=== PATIENT | female | born 1930 | race Caucasian/White ===

== ENCOUNTER 2018-02-01 10:19 | Inpatient (IN) ==
[2018-02-01] MEDS ORDERED: Pantoprazole Inj 40 MG Vial IV.PUSH ONE (11:01)
[2018-02-01] MEDS ORDERED: Morphine Inj 4 MG/ML Vial IV.PUSH ONE (11:01)
[2018-02-01] MEDS ORDERED: Sod Chloride 0.9% Inj 1,000 ML IV.SIG ONE (11:01)
--- NOTE | 2018-02-01 11:06 | ED ---
HPI General Chief complaint: Nausea/Vomiting/Diarrhea Stated complaint: GI Complaint Time Seen by Provider: 02/01/18 10:54 Source: patient and family Mode of arrival: ambulatory Limitations: no limitations History of Present Illness HPI Narrative: 87-year female presents to the emergency department for evaluation of persistent nausea, vomiting and abdominal pain. Patient presented with similar symptoms. Her daughter states that Thursday her nausea and vomiting became worse and was unable to tolerate her medications which included Flagyl, Cipro, and Zofran. Patient states her midepigastric and left lower quadrant have been tender and painful. Patient states it is constant and nonradiating. Her daughter states that the vomitus was "bile colored" Thursday and has been persistently green since then. Daughter states patient has felt warm and cool throughout the weekend but denies actual fever. Denies chest pain or shortness of breath. Daughter reports that whenever patient gets hiccups, she becomes nauseous but this is intermittent. Patient does not recall her last bowel movement. No cardiac or pulmonary history. Related Data Home Medications Medication Instructions Recorded Confirmed amiloride-hydrochlorothiazide 1 tab PO DAILY 01/28/18 01/28/18 amlodipine 10 mg PO DAILY 01/28/18 01/28/18 aspirin 81 mg PO DAILY 01/28/18 01/28/18 benazepril 40 mg PO DAILY 01/28/18 01/28/18 gabapentin 100 mg PO DAILY 01/28/18 01/28/18 ipratropium bromide 2 spray INTRANASAL TID 01/28/18 01/28/18 meclizine 25 mg PO TID PRN 01/28/18 01/28/18 metoprolol succinate 100 mg PO DAILY 01/28/18 01/28/18 oxybutynin chloride 10 mg PO DAILY 01/28/18 01/28/18 pravastatin 80 mg PO DAILY 01/28/18 01/28/18 primidone 50 mg PO DAILY 01/28/18 01/28/18 Previous Rx's Medication Instructions Recorded ciprofloxacin HCl [Cipro] 500 mg PO BID #14 tab 01/28/18 metronidazole [Flagyl] 500 mg PO Q8H 7 Days #21 tab 01/28/18 Allergies Allergy/AdvReac Type Severity Reaction Status Date / Time atorvastatin Allergy Severe SWELLING Unverified 01/28/18 16:38 codeine Allergy Severe NAUSEA Unverified 01/28/18 16:38 loratadine Allergy Severe SWELLING Unverified 01/28/18 16:38 meperidine Allergy Severe NAUSEA Unverified 01/28/18 16:38 iohexol Allergy Unknown PT.ALLERGIC Unverified 01/28/18 16:38 TO PREDNISON/DO NOT PREMED!! Review of Systems ROS: all other systems reviewed are negative [facility] Medical History Medical History Bone cancer (Acute) Skin cancer (Acute) Essential tremor (Acute) Hyperlipidemia (Acute) Hypertension (Acute) Surgical History Surgical History History of hysterectomy (Acute) Hx of cholecystectomy (Acute) Family History Family History Other Family history not known due to adoption Social History Social History Substance History: No History of Abuse Second Hand Smoke Exposure: No Smoking Status: Never smoker How Often Do You Have a Drink Containing Alcohol: Never Recent Travel in [facility] within the Last 8 Weeks: No Recent Out of Country Travel within the Last 8 Weeks: No Immunization History Tetanus Immunization: <5 Years Exam Narrative Exam Narrative: GENERAL: WD, WN in NAD, tremulous SKIN: Warm and dry. HEAD: Atraumatic. Normocephalic. EYES: Pupils equal and round. No scleral icterus. No injection or drainage. ENT: No nasal bleeding or discharge. Mucous membranes pink and moist. NECK: Trachea midline. No JVD. CARDIOVASCULAR: Regular rate and rhythm. RESPIRATORY: No accessory muscle use. Clear to auscultation. Breath sounds equal bilaterally. GASTROINTESTINAL: Abdomen soft, TTP to midepigastric and LLQ without rebound tenderness. No CVAT MUSCULOSKELETAL: Extremities without clubbing, cyanosis, or edema. No obvious deformities. No TTP to calves NEUROLOGICAL: Awake and alert. No obvious cranial nerve deficits. Motor grossly within normal limits. Five out of 5 muscle strength in the arms and legs. Normal speech. PSYCHIATRIC: Appropriate mood and affect; insight and judgment normal. Course Initial Documented Vital Signs Temperature 98.2 F 02/01/18 10:22 Pulse Rate 94 H 02/01/18 10:22 Respiratory Rate 20 02/01/18 10:22 Blood Pressure 201/82 H 02/01/18 10:22 Pulse Oximetry 96 02/01/18 10:22 Last Documented Vital Signs Temperature 98.4 F 02/01/18 10:25 Pulse Rate 94 H 02/01/18 13:19 Respiratory Rate 18 02/01/18 13:19 Blood Pressure 175/79 H 02/01/18 13:19 Pulse Oximetry 94 L 02/01/18 13:19 Medical Decision Making RENU Attestation RENU supervised visit: Yes Attestation: I, Dr. akins, have reviewed the advance practice practitioner's documentation and am in agreement, met with the patient face to face, made the diagnosis, and the medical decision making was done by me. *My assessment and Findings: 87 y/o female presents with abdominal pain and nausea. CT shows partial bowel obstruction and EKG shows A. fib. Patient will be admitted for further care of the above and agrees to plan of care, patient with critical hypokalemia which will be replaced MDM Narrative Medical decision making narrative: 87y female presents to the ED for evaluation of worsening abdominal pain, nausea, and vomiting over the last couple of days. She has been unable to tolerate the medications given to her despite zofran administration. EKG shows atrial fibrillation at rate 112, no ST elevations or depressions. I had a discussion with the daughter who states that patient has never had a history of an irregular heartbeat. This EKG finding may be new for her. Labs are notable for potassium 2.7, ordered 40meq IV KCl. WBC 14.8. Sodium 127. troponin elevated at 0.15, likely type 2. Consider trending. Vital signs: hypertensive and tachycardic, cardizem 20mg IV. Protonix for midepigastric pain. Morphine for abdominal pain. 1L NS IVF for hydration. CT concerning for SBO. Pt will be made NPO. NG tube ordered for placement. CXR which helped confirm placement. I spoke to Dr. Hull who agreed to the admission. Medical Screen Exam Complete: Yes Emergency Medical Condition: Yes Differential Diagnosis Differential Diagnosis: colitis, failed outpatient antibiotics, diverticulitis, SBO Lab Data Result diagrams: 02/01/18 11:16 02/01/18 11:16 Lab Results 02/01/18 02/01/18 Range/Units 11:16 11:16 WBC 14.8 H (4.0-11.0) th/mm3 RBC 4.97 (4.00-5.30) mil/mm3 Hgb 15.2 (11.6-15.3) gm/dL Hct 43.3 (35.0-46.0) % MCV 87.0 (80.0-100.0) fL MCH 30.6 (27.0-34.0) pg MCHC 35.2 (32.0-36.0) % RDW 13.7 (11.6-17.2) % Plt Count 240 (150-450) th/mm3 MPV 10.5 (7.0-11.0) fL Neut % (Auto) 72.2 H (16.0-70.0) % Lymph % (Auto) 15.2 (9.0-44.0) % [facility] % (Auto) 11.9 H (0.0-8.0) % Eos % (Auto) 0.4 (0.0-4.0) % Baso % (Auto) 0.3 (0.0-2.0) % Neut # (Auto) 10.7 H (1.8-7.7) th/mm3 Lymph # (Auto) 2.3 (1.0-4.8) th/mm3 [facility] # (Auto) 1.8 H (0.0-0.9) th/mm3 Eos # (Auto) 0.1 (0.0-0.4) th/mm3 Baso # (Auto) 0.0 (0.0-0.2) th/mm3 WBC Differential . Differential Comment Auto diff final Sodium 127 L (136-145) meq/L Potassium 2.7 L* (3.5-5.1) meq/L Chloride 88 L (98-107) meq/L Carbon Dioxide 27.1 (21.0-32.0) meq/L Anion Gap 12 (5-15) meq/L BUN 23 H (7-18) mg/dL Creatinine 0.98 (0.50-1.00) mg/dL Estimated GFR 54 L (>89) mL/min Random Glucose 125 H (74-106) mg/dL Calcium 10.2 H (8.5-10.1) mg/dL Magnesium 1.8 (1.5-2.5) mg/dL Total Bilirubin 0.9 (0.2-1.0) mg/dL AST 31 (15-37) U/L ALT 23 (10-53) U/L Alkaline Phosphatase 57 (45-117) U/L Troponin I 0.15 H (0.02-0.05) ng/mL Total Protein 8.1 (6.4-8.2) g/dL Albumin 3.9 (3.4-5.0) g/dL Lipase 166 (73-393) U/L TSH 2.140 (0.358-3.740) uIU/mL Imaging Data Radiologist's impression: Abdomen/Pelvis CT 02/01/18 11:06 CONCLUSION: 1. Moderate distention of the mid and proximal small bowel with air-fluid levels which is increased compared to the prior study. The distal small bowel is nondilated. This suggests a mid to distal partial small bowel obstruction. 2. The bladder remains somewhat distended. 3. Otherwise, no other significant changes are seen compared to the prior study. Chest X-Ray 02/01/18 11:09 CONCLUSION: 1. Senescent changes with minimal positive fluid balance. Abdomen X-Ray 02/01/18 13:05 CONCLUSION: There is an NG tube in the stomach. Discharge Plan Discharge Disposition Patient Disposition: 30 Still Patient Discharge Condition Condition: Stable Discharge Details Diagnosis: Dehydration, Partial small bowel obstruction, Acute hypokalemia, Elevated troponin Physicians Team ED Provider: Claudine Akins ED Midlevel Provider: Mallorie Echols Attending Provider: Lynsey Hull Other Providers: Kemar Arriola ; Tyson Francis Status ED Status: Admitted Observation Patient
--- NOTE | 2018-02-01 11:43 | CT ---
EXAM DATE: 02/01/2018 11:09 AM EDT AGE/SEX: 87 years / Female INDICATIONS: Left lower quadrant abdomen pain severe nausea CLINICAL DATA: This is the patient's initial encounter. Patient reports that signs and symptoms have been present for 1 day and indicates a pain score of 5/10. MEDICAL/SURGICAL HISTORY: Carcinoma, lung. Hypertension. adenocarcinoma Cholecystectomy. Hy sterectomy. RADIATION DOSE: 6.64 CTDI (mGy) COMPARISON: [facility] – [place], CT ABDOMEN & PELVIS W/O CONTRAST, 01/28/2018. . TECHNIQUE: Multiple contiguous axial images were obtained through the abdomen. Images were obtained using multiple row detector helical technique. Using automated exposure control and adjustment of the mA and/or kV according to patient size, radiation dose was kept as low as reasonably achievable to o btain optimal diagnostic quality images. DICOM format image data is available electronically for rev iew and comparison. FINDINGS: Lower Lungs: The visualized lower lungs are clear. Small pericardial effusion. Liver: The liver has a homogeneous density without space-occupying lesion. There is no dilation of th e biliary tree. Gallbladder surgically removed. Spleen: Homogeneous density without enlargement. Pancreas: Unremarkable without mass or calcification. Kidneys: Normal in size and shape. No evidence of mass or hydronephrosis. No calcified renal stones. Adrenal Glands: Unremarkable. Aorta: Stable atherosclerotic changes. No aneurysmal dilatation. Bowel/Mesentery: Today's examination there is moderate distention of the proximal mid small bowel wi th air-fluid levels. The distal small bowel is completely nondilated. This suggests a mid to distal s mall bowel obstruction. The colon is nondilated. There is stool throughout the colon. There are some scattered diverticula throughout the colon without definite inflammatory changes. No free fluid or lo culated fluid collections are demonstrated. Abdominal Wall: Intact. Retroperitoneum: No evidence of adenopathy in the retrocrural, para-aortic, or deep pelvic regions. Bladder: Contours are smooth. Bladder is still somewhat distended. Reproductive Organs: No abnormal masses or calcifications seen. Inguinal: The inguinal region is unremarkable without evidence of adenopathy. Bony Structures: Stable diffuse degenerative changes. Evidence of previous lumbar spinal surgery wit h fusion involving the lower lumbar spine. CONCLUSION: 1. Moderate distention of the mid and proximal small bowel with air-fluid levels which is increased compared to the prior study. The distal small bowel is nondilated. This suggests a mid to distal part ial small bowel obstruction. 2. The bladder remains somewhat distended. 3. Otherwise, no other significant changes are seen compared to the prior study. Electronically signed by: Gamaliel Haynes MD 02/01/2018 11:42 AM EDT
[2018-02-01 11:58] LABS: Baso % (Auto) 0.3 % (0.0-2.0); Eos # (Auto) 0.1 th/mm3 (0.0-0.4); Eos % (Auto) 0.4 % (0.0-4.0); Hematocrit 43.3 % (35.0-46.0); Hemoglobin 15.2 gm/dL (11.6-15.3); Lymph # (Auto) 2.3 th/mm3 (1.0-4.8); Lymph % (Auto) 15.2 % (9.0-44.0); Mean Corpuscular HGB Conc 35.2 % (32.0-36.0); Mean Corpuscular Hemoglobin 30.6 pg (27.0-34.0); Mean Platelet Volume 10.5 fL (7.0-11.0); Mono # (Auto) 1.8 th/mm3 (0.0-0.9); Mono % (Auto) 11.9 % (0.0-8.0); Neut # (Auto) 10.7 th/mm3 (1.8-7.7); Neut % (Auto) 72.2 % (16.0-70.0); Platelet Count 240 th/mm3 (150-450); Red Blood Count 4.97 mil/mm3 (4.00-5.30); Red Cell Distribution Width 13.7 % (11.6-17.2); White Blood Count 14.8 th/mm3 (4.0-11.0)
--- NOTE | 2018-02-01 12:20 | XR ---
EXAM DATE: 02/01/2018 11:09 AM EDT AGE/SEX: 87 years / Female INDICATIONS: Shortness of breath and vomiting. CLINICAL DATA: This is the patient's initial encounter. Patient reports that signs and symptoms have been present for 3 days and indicates a pain score of 5/10. MEDICAL/SURGICAL HISTORY: Carcinoma, lung. Hypertension. Cholecystectomy. Hysterectomy. COMPARISON: . FINDINGS: Mild diffuse interstitial prominence. Cardiac silhouette is within normal limits. Central pulmonary v ascularity is slightly indistinct. Bony thorax is intact. CONCLUSION: 1. Senescent changes with minimal positive fluid balance. Electronically signed by: Jayden Mclaughlin MD 02/01/2018 12:19 PM EDT
[2018-02-01 12:35] LABS: Alanine Aminotransferase 23 U/L (10-53); Albumin 3.9 g/dL (3.4-5.0); Alkaline Phosphatase 57 U/L (45-117); Anion Gap 12 meq/L (5-15); Aspartate Aminotransferase 31 U/L (15-37); Blood Urea Nitrogen 23 mg/dL (7-18); Calcium 10.2 mg/dL (8.5-10.1); Carbon Dioxide 27.1 meq/L (21.0-32.0); Chloride 88 meq/L (98-107); Glomerular Filtration Rate 54 mL/min (>89); Glucose,Random 125 mg/dL (74-106); Lipase 166 U/L (73-393); Magnesium 1.8 mg/dL (1.5-2.5); Sodium 127 meq/L (136-145); Total Protein 8.1 g/dL (6.4-8.2); Troponin I 0.15 ng/mL (0.02-0.05)
[2018-02-01 12:38] LABS: Potassium 2.7 meq/L (3.5-5.1)
[2018-02-01] MEDS: Potassium Chlor 20 mEq Premix 20 MEQ/100 ML PIGGYBACK IV.SIG SCH ×2 (13:11→18:45)
[2018-02-01] MEDS ORDERED: Acetaminophen 325 MG Tablet PO PRN (13:34)
[2018-02-01] MEDS ORDERED: Bisacodyl 10 MG Supp RECTAL PRN (13:34)
[2018-02-01] MEDS ORDERED: Morphine Inj 4 MG/ML Vial IV.PUSH PRN ×2 (13:34→14:30)
[2018-02-01] MEDS ORDERED: Naloxone Inj 0.4 MG/ML Vial IV.PUSH PRN (13:34)
[2018-02-01] MEDS ORDERED: dilTIAZem Inj 125 MG in Sodium Chlor 0.9% Inj 100 ML IV.CONT PRN (13:44)
--- NOTE | 2018-02-01 13:56 | XR ---
EXAM DATE: 02/01/2018 1:05 PM EDT AGE/SEX: 87 years / Female INDICATIONS: Evaluate ET tube placement. CLINICAL DATA: This is the patient's initial encounter. Patient reports that signs and symptoms have been present for 1 day and indicates a pain score of 0/10. MEDICAL/SURGICAL HISTORY: Carcinoma, lung. Hypertension. Cholecystectomy. Hysterectomy. COMPARISON: No prior exams available for comparison. FINDINGS: An ET tube is not visualized on this examination. However, there is a NG tube in the stomach. The bow el gas pattern is within normal limits. The lung bases are grossly clear. CONCLUSION: There is an NG tube in the stomach. Electronically signed by: Gamaliel Haynes MD 02/01/2018 1:55 PM EDT
--- NOTE | 2018-02-01 14:34 | P.HPIM ---
History of Present Illness Service: [facility] Primary Care Physician: Cathryn Mccauley Chief Complaint: Abdominal pain. Nausea and vomiting History of Present Illness: 87-year-old white female with a history of hyperlipidemia, hypertension, essential tremor, previous bone cancer per reports in the back to the emergency room with worsening abdominal pain with associated intractable nausea and vomiting. She was seen on 28 January in the emergency room for abdominal pain and had a CAT scan abdomen pelvis performed which showed thickening of the sigmoid colon with possible colitis and was sent home on prescription for Cipro and Flagyl. Despite taking the antibiotics, her symptoms is not improved and now developed intractable nausea and some episodes of bilious vomiting which she describes as green in color. She reported when the abdomen pain first started it was located in the mid upper abdomen area and radiated down to the left side. She describes the pain as a dull burning pain that comes and goes. She denies any changes in her bowel movements. She denies any constipation nor any diarrhea. She has not seen any blood in her stools or black tarry stools. She denies any chills or fever associate with the symptoms. She denies any chest pain nor any symptoms of palpitation or shortness of breath. She has not had any heart history in the past. In the emergency room, she was found to have new onset atrial fibrillation and responded to IV Cardizem. She currently lives with her daughter and ambulates with assistance of a cane. Inpatient Certification: I certify that the inpatient services were ordered in accordance with Medicare regulations governing the order. This includes certification that hospital inpatient services are reasonable and necessary and in the case of services not specified as inpatient-only under 42 CFR 419.22(n), that they are appropriately provided as inpatient services in accordance to with the 2-midnight benchmark under 43 CFR 412.3(e) Estimated Total Length of Stay (Days): 3 Plans for Post Hospital Care: Not yet determined Review of Systems All other systems reviewed negative except as stated in HPI [facility] - History History Provided By: Patient - Medical History Medical History: Medical History (Last Updated 02/01/18 @ 14:22 by Lynsey Hull MD) Bone cancer Skin cancer Essential tremor Hyperlipidemia Hypertension - Surgical History Surgical History: Surgical History (Last Updated 02/01/18 @ 14:22 by Lynsey Hull MD) History of hysterectomy (Acute) Hx of cholecystectomy - Family History Family History: Family History (Last Updated 02/01/18 @ 14:22 by Lynsey Hull MD) Other Family history not known due to adoption - Social History I have reviewed the patient's Social History: Yes - Tobacco History Second Hand Smoke Exposure: No Tobacco Use In Past 30 Days: No Smoking Status: Never smoker - Alcohol History How Often Do You Have a Drink Containing Alcohol: Never - Substance Use History Substance History: No History of Abuse - Travel History Recent Travel in the [place] Within the Last 8 Weeks: No Recent Travel Out of the Country Within the Last 8 Weeks: No - Immunization History Tetanus Immunization: <5 Years Medications and Allergies Active Medications: Active Medications Acetaminophen (Tylenol) 650 mg PO Q6HR PRN PRN Reason: PAIN SCALE 1 TO 2 Al Hydroxide/Mg Hydroxide (Milk Of Magnesia Liq) 30 ml PO Q12H PRN PRN Reason: Mild Constipation Bisacodyl (Dulcolax Supp) 10 mg RECTAL DAILY PRN PRN Reason: SEVERE CONSITIPATION Enalaprilat (Vasotec Inj) 1.25 mg IV.PUSH Q6H PRN PRN Reason: SEE LABEL COMMENTS Potassium Chloride (Kcl 20 Meq Premix Inj) 20 meq in 100 mls @ 50 mls/hr IV.SIG Q2H MAGGIE Stop: 02/01/18 16:44 Last Admin: 02/01/18 13:11 Dose: 50 mls/hr Diltiazem HCl 125 mg/ Sodium (Chloride) 125 mls @ 5 mls/hr IV.CONT TITRATE PRN ; Protocol PRN Reason: Per Protocol Potassium Chloride/Dextrose/Sod Cl (D5w/1/2ns + Kcl 20 Meq Inj) 1,000 mls @ 80 mls/hr IV.CONT .[id number] MAGGIE Lactulose (Lactulose Liq) 30 ml PO DAILY PRN PRN Reason: SEVERE CONSITIPATION Morphine Sulfate (Morphine Inj) 2 mg IV.PUSH Q3H PRN PRN Reason: PAIN 3-5; IF UABLE TO TAKE PO Morphine Sulfate (Morphine Inj) 4 mg IV.PUSH Q3H PRN PRN Reason: PAIN 6-10;IF UNABLE TO TAKE PO Naloxone HCl (Narcan Inj) 0.4 mg IV.PUSH UNSCH PRN PRN Reason: SEE LABEL COMMENTS Ondansetron HCl (Zofran Inj) 4 mg IV.PUSH Q6H PRN PRN Reason: NAUSEA OR VOMITING Senna/Docusate Sodium (Lori-Colace) 1 tab PO BID MAGGIE Sennosides (Senokot) 17.2 mg PO Q12H PRN PRN Reason: Moderate Constipation Sodium Chloride (Ns Flush) 2 ml IV.FLUSH PRN PRN PRN Reason: FLUSH AFTER USING IV ACCESS Allergies Allergy/AdvReac Type Severity Reaction Status Date / Time atorvastatin Allergy Severe SWELLING Unverified 01/28/18 16:38 codeine Allergy Severe NAUSEA Unverified 01/28/18 16:38 loratadine Allergy Severe SWELLING Unverified 01/28/18 16:38 meperidine Allergy Severe NAUSEA Unverified 01/28/18 16:38 iohexol Allergy Unknown PT.ALLERGIC Unverified 01/28/18 16:38 TO PREDNISON/DO NOT PREMED!! Home Medications Medication Instructions Recorded Confirmed Type amiloride-hydrochlorothiazide 1 tab PO DAILY 01/28/18 01/28/18 History amlodipine 10 mg PO DAILY 01/28/18 01/28/18 History aspirin 81 mg PO DAILY 01/28/18 01/28/18 History benazepril 40 mg PO DAILY 01/28/18 01/28/18 History gabapentin 100 mg PO DAILY 01/28/18 01/28/18 History ipratropium bromide 2 spray INTRANASAL TID 01/28/18 01/28/18 History meclizine 25 mg PO TID PRN 01/28/18 01/28/18 History metoprolol succinate 100 mg PO DAILY 01/28/18 01/28/18 History oxybutynin chloride 10 mg PO DAILY 01/28/18 01/28/18 History pravastatin 80 mg PO DAILY 01/28/18 01/28/18 History primidone 50 mg PO DAILY 01/28/18 01/28/18 History Exam Vital signs: Vital Signs 02/01/18 10:22 02/01/18 10:25 02/01/18 12:30 Temperature 98.2 F 98.4 F Pulse Rate 94 H 104 H 107 H Respiratory Rate 20 18 18 Blood Pressure 201/82 H 192/91 H 220/83 H Pulse Oximetry 96 98 95 02/01/18 13:19 Temperature Pulse Rate 94 H Respiratory Rate 18 Blood Pressure 175/79 H Pulse Oximetry 94 L Intake & Output 01/31/18 02/01/18 02/01/18 18:59 06:59 18:59 Intake Total 1000 / 1000 Balance 1000 / 1000 Weight 58.967 kg Intake: IV 1000 / 1000 NS Inj 1,000 ML @ Wide Open IV. 1000 / 1000 SIG BOLUS ONE Rx#:[id number] Narrative: GENERAL: Well-nourished well-developed white female in no acute distress pleasant SKIN: Warm and dry. Dry skin changes in the bilateral lower extremity HEAD: Atraumatic. Normocephalic. EYES: Pupils equal and round. No scleral icterus. No injection or drainage. ENT: No nasal bleeding or discharge. Mucous membranes pink and moist. NECK: Trachea midline. No JVD. CARDIOVASCULAR: Irregular rate and rhythm. RESPIRATORY: No accessory muscle use. Clear to auscultation. Breath sounds equal bilaterally. GASTROINTESTINAL: Abdomen soft, mild mid abdominal tenderness and left lower abdomen tenderness without rebound or guarding, few bowel sounds, hypoactive to person place MUSCULOSKELETAL: Extremities without clubbing, cyanosis, or edema. No obvious deformities. NEUROLOGICAL: Awake and alert and time. Hard of hearing no obvious cranial nerve deficits. Motor grossly within normal limits. Five out of 5 muscle strength in the arms and legs. Normal speech. PSYCHIATRIC: Appropriate mood and affect; insight and judgment normal. Results - Labs CBC & Chem 7: 02/01/18 11:16 02/01/18 11:16 Labs: Short CBC 02/01/18 Range/Units 11:16 WBC 14.8 H (4.0-11.0) th/mm3 Hgb 15.2 (11.6-15.3) gm/dL Hct 43.3 (35.0-46.0) % Plt Count 240 (150-450) th/mm3 BMP 02/01/18 11:16 Sodium 127 L Potassium 2.7 L* Chloride 88 L Carbon Dioxide 27.1 BUN 23 H Creatinine 0.98 Calcium 10.2 H Cardiac Enzymes 02/01/18 Range/Units 11:16 Troponin I 0.15 H (0.02-0.05) ng/mL Liver Function 02/01/18 Range/Units 11:16 Total Bilirubin 0.9 (0.2-1.0) mg/dL AST 31 (15-37) U/L ALT 23 (10-53) U/L Alkaline Phosphatase 57 (45-117) U/L Albumin 3.9 (3.4-5.0) g/dL - Imaging Impressions Abdomen/Pelvis CT 02/01/18 11:06 CONCLUSION: 1. Moderate distention of the mid and proximal small bowel with air-fluid levels which is increased compared to the prior study. The distal small bowel is nondilated. This suggests a mid to distal partial small bowel obstruction. 2. The bladder remains somewhat distended. 3. Otherwise, no other significant changes are seen compared to the prior study. Chest X-Ray 02/01/18 11:09 CONCLUSION: 1. Senescent changes with minimal positive fluid balance. Abdomen X-Ray 02/01/18 13:05 CONCLUSION: There is an NG tube in the stomach. - ECG Attestation: I personally reviewed and interpreted this ECG as follows: Prior ECG tracings: not available for review Interpretation: Atrial fibrillation with rapid ventricular response of 112 Caprini VTE Risk Assessment Caprini VTE Risk Assessment: Moderate/High Risk (score >= 2) Caprini Risk Assessment Model: Point Value = 1 Point Value = 2 Point Value = 3 Point Value = 5 Age 41-60 Minor surgery BMI > 25 kg/m2 Swollen legs Varicose veins or History of unexplained or recurrent spontaneous Oral contraceptives or hormone replacement Sepsis (< 1 month) Serious lung disease, including pneumonia (< 1 month) Abnormal pulmonary function Acute myocardial infarction Congestive heart failure (< 1 month) History of inflammatory bowel disease Medical patient at bed rest Age 61-74 Arthroscopic surgery Major open surgery (> 45 min) Laparoscopic surgery (> 45 min) Malignancy Confined to bed (> 72 hours) Immobilizing plaster cast Central venous access Age >= 75 History of VTE Family history of VTE Factor V Leiden Prothrombin [id number] Lupus anticoagulant Anticardiolipin antibodies Elevated serum homocysteine Heparin-induced thrombocytopenia Other congenital or acquired thrombophilia Stroke (< 1 month) Elective arthroplasty Hip, pelvis, or leg fracture Acute spinal cord injury (< 1 month) Prophylaxis Regimen: Total Risk Factor Score Risk Level Prophylaxis Regimen 0-1 Low Early ambulation 2 Moderate Order ONE of the following: *Sequential Compression Device (SCD) *Heparin 5000 units SQ BID 3-4 Higher Order ONE of the following medications: *Heparin 5000 units SQ TID *Enoxaparin/Lovenox 40 mg SQ daily (WT < 150 kg, CrCl > 30 mL/min) *Enoxaparin/Lovenox 30 mg SQ daily (WT < 150 kg, CrCl > 10-29 mL/min) *Enoxaparin/Lovenox 30 mg SQ BID (WT < 150 kg, CrCl > 30 mL/min) AND/OR *Sequential Compression Device (SCD) 5 or more Highest Order ONE of the following medications: *Heparin 5000 units SQ TID (Preferred with Epidurals) *Enoxaparin/Lovenox 40 mg SQ daily (WT < 150 kg, CrCl > 30 mL/min) *Enoxaparin/Lovenox 30 mg SQ daily (WT < 150 kg, CrCl > 10-29 mL/min) *Enoxaparin/Lovenox 30 mg SQ BID (WT < 150 kg, CrCl > 30 mL/min) AND *Sequential Compression Device (SCD) Assessment and Plan - Plan 87-year-old white female with a history of hypertension hyperlipidemia was initially seen in the ED on January 28 with diagnoses of possibly colitis and discharged on oral Cipro and Flagyl now re-presented with recurrent and intractable nausea vomiting abdominal pain with new onset of atrial fibrillation. 1. Abdominal pain with intractable nausea and vomiting with possible findings of partial bowel obstruction on CT - Continue IV fluid hydration for supportive care and n.p.o. status with NG tube to suction for decompression. GI consultation for further recommendation Consideration for general surgery consult in the next 24 hours if clinical symptoms does not improve and for consideration of evaluation for ischemic bowel due to findings of new onset of atrial fibrillation. Abdominal flat and upright in the morning for further evaluation. Zosyn IV for empiric coverage 2. New onset of atrial fibrillationCardizem drip to titrate for heart rate less than 100. Lovenox to be initiated. Obtain a 2D echo for further workup and obtain an cardiology consultation. Mild elevation troponin I may be due to demand capacity and will trend. Patient at this time denies any active complaints of chest pain. 3. Hypertension urgencyblood pressure improved on Cardizem. IV Vasotec as needed will be initiated. 4. Hyperlipidemia, chronichold home medication due to n.p.o. status. 5. Hyponatremia due to hypovolemia from intractable nausea vomitingIV fluids and supportive care. 6. Hypokalemia due to nausea and vomitingreplete 7. DVT prophylaxisLovenox.
[2018-02-01] MEDS: KCL 20 mEq/D5W/NaCl 0.45% Inj 1,000 ML IV.CONT SCH (14:39)
[2018-02-01] MEDS: Enoxaparin Inj 60 MG/0.6 ML Syringe SQ SCH (14:40)
--- NOTE | 2018-02-01 15:39 | P.CONCA ---
History of Present Illness Service: Cardiology Consult date: 02/01/18 Reason for Consult: Atrial fibrillation Primary Care Provider: Cathryn Mccauley Chief Complaint: Abdominal pain. Nausea and vomiting History of Present Illness: This is an 87-year-old female with hyperlipidemia, hypertension, essential tremor, and prior bone cancer. Patient presents with worsening abdominal pain with intractable nausea and vomiting. She was seen back in mid January and diagnosed with colitis started on antibiotic therapies. She is now to have found partial obstruction on CT scan of the abdomen. She was also noted to be in atrial fibrillation with rapid ventricular rate. She was started on intravenous Cardizem. She denies any history of atrial fibrillation, chest pain , coronary disease. She is currently asymptomatic from a cardiovascular perspective. Review of Systems All other systems reviewed negative except as stated in HPI [facility] - History History Provided By: Patient - Medical History Medical History: Medical History (Last Updated 02/01/18 @ 14:22 by Lynsey Hull MD) Bone cancer Skin cancer Essential tremor Hyperlipidemia Hypertension - Surgical History Surgical History: Surgical History (Last Updated 02/01/18 @ 14:22 by Lynsey Hull MD) History of hysterectomy (Acute) Hx of cholecystectomy - Family History Family History: Family History (Last Updated 02/01/18 @ 14:22 by Lynsey Hull MD) Other Family history not known due to adoption - Tobacco History Second Hand Smoke Exposure: No Tobacco Use In Past 30 Days: No Smoking Status: Never smoker - Alcohol History How Often Do You Have a Drink Containing Alcohol: Never - Substance Use History Substance History: No History of Abuse - Travel History Recent Travel in the [place] Within the Last 8 Weeks: No Recent Travel Out of the Country Within the Last 8 Weeks: No - Immunization History Tetanus Immunization: <5 Years Medications and Allergies Active Medications: Active Medications Acetaminophen (Tylenol) 650 mg PO Q6HR PRN PRN Reason: PAIN SCALE 1 TO 2 Al Hydroxide/Mg Hydroxide (Milk Of Magnesia Liq) 30 ml PO Q12H PRN PRN Reason: Mild Constipation Bisacodyl (Dulcolax Supp) 10 mg RECTAL DAILY PRN PRN Reason: SEVERE CONSITIPATION Clonidine HCl (Catapress-Tts 0.1 Mg Patch.7d) 1 patch T-DERMAL Q7D MAGGIE Enalaprilat (Vasotec Inj) 1.25 mg IV.PUSH Q6H PRN PRN Reason: SEE LABEL COMMENTS Last Admin: 02/01/18 14:36 Dose: 1.25 mg Enoxaparin Sodium (Lovenox Inj) 60 mg SQ Q12H [facility] Last Admin: 02/01/18 14:40 Dose: 60 mg Potassium Chloride (Kcl 20 Meq Premix Inj) 20 meq in 100 mls @ 50 mls/hr IV.SIG Q2H MAGGIE Stop: 02/01/18 16:44 Last Admin: 02/01/18 13:11 Dose: 50 mls/hr Diltiazem HCl 125 mg/ Sodium (Chloride) 125 mls @ 5 mls/hr IV.CONT TITRATE PRN ; Protocol PRN Reason: Per Protocol Potassium Chloride/Dextrose/Sod Cl (D5w/1/2ns + Kcl 20 Meq Inj) 1,000 mls @ 80 mls/hr IV.CONT .[id number] [facility] Last Admin: 02/01/18 14:39 Dose: 80 mls/hr Piperacillin/Tazobactam/Dextrose (Zosyn 3.375 Gm Premix) 50 mls @ 100 mls/hr IV.SIG Q6H [facility] Lactulose (Lactulose Liq) 30 ml PO DAILY PRN PRN Reason: SEVERE CONSITIPATION Morphine Sulfate (Morphine Inj) 2 mg IV.PUSH Q3H PRN PRN Reason: PAIN 3-5; IF UNABLE TO TAKE PO Morphine Sulfate (Morphine Inj) 4 mg IV.PUSH Q3H PRN PRN Reason: PAIN 6-10;IF UNABLE TO TAKE PO Naloxone HCl (Narcan Inj) 0.4 mg IV.PUSH UNSCH PRN PRN Reason: SEE LABEL COMMENTS Ondansetron HCl (Zofran Inj) 4 mg IV.PUSH Q6H PRN PRN Reason: NAUSEA OR VOMITING Patch Removal (Remove Old Patch) 1 each T-DERMAL Q7D [facility] Senna/Docusate Sodium (Lori-Colace) 1 tab PO BID [facility] Sennosides (Senokot) 17.2 mg PO Q12H PRN PRN Reason: Moderate Constipation Sodium Chloride (Ns Flush) 2 ml IV.FLUSH PRN PRN PRN Reason: FLUSH AFTER USING IV ACCESS Allergies Allergy/AdvReac Type Severity Reaction Status Date / Time atorvastatin Allergy Severe SWELLING Unverified 01/28/18 16:38 codeine Allergy Severe NAUSEA Unverified 01/28/18 16:38 loratadine Allergy Severe SWELLING Unverified 01/28/18 16:38 meperidine Allergy Severe NAUSEA Unverified 01/28/18 16:38 iohexol Allergy Unknown PT.ALLERGIC Unverified 01/28/18 16:38 TO PREDNISON/DO NOT PREMED!! Home Medications Medication Instructions Recorded Confirmed Type amiloride-hydrochlorothiazide 1 tab PO DAILY 01/28/18 01/28/18 History amlodipine 10 mg PO DAILY 01/28/18 01/28/18 History aspirin 81 mg PO DAILY 01/28/18 01/28/18 History benazepril 40 mg PO DAILY 01/28/18 01/28/18 History gabapentin 100 mg PO DAILY 01/28/18 01/28/18 History ipratropium bromide 2 spray INTRANASAL TID 01/28/18 01/28/18 History meclizine 25 mg PO TID PRN 01/28/18 01/28/18 History metoprolol succinate 100 mg PO DAILY 01/28/18 01/28/18 History oxybutynin chloride 10 mg PO DAILY 01/28/18 01/28/18 History pravastatin 80 mg PO DAILY 01/28/18 01/28/18 History primidone 50 mg PO DAILY 01/28/18 01/28/18 History Exam Vital signs: Vital Signs 02/01/18 10:22 02/01/18 10:25 02/01/18 12:30 Temperature 98.2 F 98.4 F Pulse Rate 94 H 104 H 107 H Respiratory Rate 20 18 18 Blood Pressure 201/82 H 192/91 H 220/83 H Pulse Oximetry 96 98 95 02/01/18 13:19 Temperature Pulse Rate 94 H Respiratory Rate 18 Blood Pressure 175/79 H Pulse Oximetry 94 L Intake & Output 01/31/18 02/01/18 02/01/18 18:59 06:59 18:59 Intake Total 1000 / 1000 Balance 1000 / 1000 Weight 58.967 kg Intake: IV 1000 / 1000 NS Inj 1,000 ML @ Wide Open IV. 1000 / 1000 SIG BOLUS ONE Rx#:[id number] - Constitutional mild distress - Routine Neck Exam Absent: JVD - Routine Respiratory Exam Present: CTA bilaterally - Routine Cardiovascular Exam Present: murmur, irregularly irregular - Routine Abdominal Exam Present: tenderness, distended - Routine Neurological Exam Absent: sensory deficit, motor deficit Results 02/01/18 11:16 02/01/18 11:16 Cardiac Enzymes 02/01/18 Range/Units 11:16 AST 31 (15-37) U/L Troponin I 0.15 H (0.02-0.05) ng/mL CBC 02/01/18 Range/Units 11:16 WBC 14.8 H (4.0-11.0) th/mm3 RBC 4.97 (4.00-5.30) mil/mm3 Hgb 15.2 (11.6-15.3) gm/dL Hct 43.3 (35.0-46.0) % Plt Count 240 (150-450) th/mm3 Neut # (Auto) 10.7 H (1.8-7.7) th/mm3 Lymph # (Auto) 2.3 (1.0-4.8) th/mm3 [place] # (Auto) 1.8 H (0.0-0.9) th/mm3 Eos # (Auto) 0.1 (0.0-0.4) th/mm3 Baso # (Auto) 0.0 (0.0-0.2) th/mm3 Comprehensive Metabolic Panel 02/01/18 Range/Units 11:16 Sodium 127 L (136-145) meq/L Potassium 2.7 L* (3.5-5.1) meq/L Chloride 88 L (98-107) meq/L Carbon Dioxide 27.1 (21.0-32.0) meq/L BUN 23 H (7-18) mg/dL Creatinine 0.98 (0.50-1.00) mg/dL Calcium 10.2 H (8.5-10.1) mg/dL AST 31 (15-37) U/L ALT 23 (10-53) U/L Alkaline Phosphatase 57 (45-117) U/L Total Protein 8.1 (6.4-8.2) g/dL Albumin 3.9 (3.4-5.0) g/dL Intake and Output 02/01/18 02/01/18 02/01/18 06:59 14:59 22:59 Intake Total 1000 / 1000 Balance 1000 / 1000 Intake: IV 1000 / 1000 NS Inj 1,000 ML @ Wide Open IV. 1000 / 1000 SIG BOLUS ONE Rx#:[id number] Other: Weight 58.967 kg Patient Weight 02/02/18 06:59 Weight 58.967 kg - Imaging and Cardiology Imaging: Impressions Abdomen/Pelvis CT 02/01/18 11:06 CONCLUSION: 1. Moderate distention of the mid and proximal small bowel with air-fluid levels which is increased compared to the prior study. The distal small bowel is nondilated. This suggests a mid to distal partial small bowel obstruction. 2. The bladder remains somewhat distended. 3. Otherwise, no other significant changes are seen compared to the prior study. Chest X-Ray 02/01/18 11:09 CONCLUSION: 1. Senescent changes with minimal positive fluid balance. Abdomen X-Ray 02/01/18 13:05 CONCLUSION: There is an NG tube in the stomach. Assessment and Plan - Assessment (1) Atrial fibrillation with rapid ventricular response Code(s): I48.91 - Unspecified atrial fibrillation Status: Acute - Plan Patient has no prior history of known atrial fibrillation. I suspect that this is likely induced secondary to increased adrenergic tone related to both pain and abdominal obstruction. Given her age and the fact that she appears to be slightly demented with poor ambulation, I do not think she would be a good long- term anticoagulation anyway. She is found to have a partial abdominal obstruction and is followed by general surgery. We will hold off on initiation of any aspirin until his determine whether or not she will need surgical intervention. At this point we can use a rate control strategy since we do not know the exact time of onset. On January 28 she was in normal sinus rhythm. We will continue Cardizem drip for now converted over to oral Cardizem tomorrow. I suspect hopefully she will spontaneously convert back to sinus rhythm once her abdominal issues are resolved. We will obtain a 2D echocardiogram.
[2018-02-01 16:20] LABS: Bilirubin,Urine Negative (Negative); Clarity,Urine Clear (Clear); Color,Urine Yellow (Yellw/Straw); Glucose,Urine (UA) Negative (Negative); Hyaline Casts,Urine 1 /lpf (0-3); Leukocyte Esterase,Urine Negative (Negative); Nitrite,Urine Negative (Negative); Specific Gravity,Urine 1.013 (1.002-1.035); Squamous Epithelial Cell,Urine 1 /hpf (0-5)
--- NOTE | 2018-02-01 16:34 | ECG ---
Date Performed: 02/01/2018 Time Performed: 10:53:45 PTAGE: 87 years EKG: MULTIFOCAL ATRIAL TACHYCARDIA NONSPECIFIC ST & T-WAVE ABNORMALITY ABNORMAL RHYTHM ECG PREVIOUS TRACING : 06/02/2008 08.23 Compared to previous tracing, the sperventricular tachycard ia is new. The Nonspecific ST-T wave changes are new. Clinical correlation is recommended to assess t he etiology. DOCTOR: Catalina Bonilla Interpretating Date/Time 02/01/2018 16:32:07
[2018-02-01] MEDS: Piperacil/Tazo 3.375 GM Premix 50 ML IV.SIG SCH ×2 (18:45→22:55)
[2018-02-01] MEDS: Senna/Docusate Sodium 8.6/50 MG Tablet PO SCH (20:45)
[2018-02-02] MEDS: Enoxaparin Inj 60 MG/0.6 ML Syringe SQ SCH ×2 (04:04→17:39)
[2018-02-02] MEDS: Piperacil/Tazo 3.375 GM Premix 50 ML IV.SIG SCH ×4 (04:07→23:18)
[2018-02-02] MEDS: KCL 20 mEq/D5W/NaCl 0.45% Inj 1,000 ML IV.CONT SCH ×2 (04:56→06:31)
[2018-02-02 06:43] LABS: Baso # (Auto) 0.1 th/mm3 (0.0-0.2); Baso % (Auto) 0.8 % (0.0-2.0); Eos # (Auto) 0.5 th/mm3 (0.0-0.4); Hematocrit 36.2 % (35.0-46.0); Hemoglobin 12.5 gm/dL (11.6-15.3); Lymph # (Auto) 2.3 th/mm3 (1.0-4.8); Lymph % (Auto) 21.1 % (9.0-44.0); Mean Corpuscular HGB Conc 34.5 % (32.0-36.0); Mean Corpuscular Hemoglobin 30.7 pg (27.0-34.0); Mean Corpuscular Volume 88.9 fL (80.0-100.0); Mean Platelet Volume 9.6 fL (7.0-11.0); Mono # (Auto) 1.3 th/mm3 (0.0-0.9); Neut # (Auto) 6.6 th/mm3 (1.8-7.7); Neut % (Auto) 61.1 % (16.0-70.0); Platelet Count 188 th/mm3 (150-450); Red Blood Count 4.07 mil/mm3 (4.00-5.30); Red Cell Distribution Width 13.8 % (11.6-17.2); White Blood Count 10.8 th/mm3 (4.0-11.0)
[2018-02-02 07:23] LABS: Calcium 8.4 mg/dL (8.5-10.1); Carbon Dioxide 27.1 meq/L (21.0-32.0)
[2018-02-02 07:50] LABS: Potassium 2.6 meq/L (3.5-5.1)
--- NOTE | 2018-02-02 08:38 | P.PNCA ---
Subjective Interval history: Daughter at bedside. Patient had NG tube placed for bowel obstruction. She is not able to take any medicines by mouth at this time. Telemetry still shows atrial fibrillation, however has been rate controlled since around midnight. Currently not on Cardizem gtt. Medications and Allergies Allergies Allergy/AdvReac Type Severity Reaction Status Date / Time atorvastatin Allergy Severe SWELLING Unverified 01/28/18 16:38 codeine Allergy Severe NAUSEA Unverified 01/28/18 16:38 loratadine Allergy Severe SWELLING Unverified 01/28/18 16:38 meperidine Allergy Severe NAUSEA Unverified 01/28/18 16:38 iohexol Allergy Unknown PT.ALLERGIC Unverified 01/28/18 16:38 TO PREDNISON/DO NOT PREMED!! Home Medications Medication Instructions Recorded Confirmed Type amiloride-hydrochlorothiazide 1 tab PO DAILY 01/28/18 02/01/18 History amlodipine 10 mg PO DAILY 01/28/18 02/01/18 History aspirin 81 mg PO DAILY 01/28/18 02/01/18 History benazepril 40 mg PO DAILY 01/28/18 02/01/18 History gabapentin 100 mg PO DAILY 01/28/18 02/01/18 History ipratropium bromide 2 spray INTRANASAL TID 01/28/18 02/01/18 History meclizine 25 mg PO TID PRN 01/28/18 02/01/18 History metoprolol succinate 100 mg PO DAILY 01/28/18 02/01/18 History oxybutynin chloride 10 mg PO DAILY 01/28/18 02/01/18 History pravastatin 80 mg PO DAILY 01/28/18 02/01/18 History primidone 50 mg PO DAILY 01/28/18 02/01/18 History Active Medications: Active Medications Acetaminophen (Tylenol) 650 mg PO Q6HR PRN PRN Reason: PAIN SCALE 1 TO 2 Al Hydroxide/Mg Hydroxide (Milk Of Magnesia Liq) 30 ml PO Q12H PRN PRN Reason: Mild Constipation Bisacodyl (Dulcolax Supp) 10 mg RECTAL DAILY PRN PRN Reason: SEVERE CONSITIPATION Clonidine HCl (Catapress-Tts 0.1 Mg Patch.7d) 1 patch T-DERMAL Q7D [facility] Last Admin: 02/01/18 16:06 Dose: 1 patch Enalaprilat (Vasotec Inj) 1.25 mg IV.PUSH Q6H PRN PRN Reason: SEE LABEL COMMENTS Last Admin: 02/01/18 14:36 Dose: 1.25 mg Enoxaparin Sodium (Lovenox Inj) 60 mg SQ Q12H [facility] Last Admin: 02/02/18 04:04 Dose: 60 mg Diltiazem HCl 125 mg/ Sodium (Chloride) 125 mls @ 5 mls/hr IV.CONT TITRATE PRN ; Protocol PRN Reason: Per Protocol Potassium Chloride/Dextrose/Sod Cl (D5w/1/2ns + Kcl 20 Meq Inj) 1,000 mls @ 80 mls/hr IV.CONT .[id number] [facility] Last Admin: 02/02/18 06:31 Dose: 80 mls/hr Piperacillin/Tazobactam/Dextrose (Zosyn 3.375 Gm Premix) 50 mls @ 100 mls/hr IV.SIG Q6H [facility] Last Admin: 02/02/18 04:07 Dose: 100 mls/hr Lactulose (Lactulose Liq) 30 ml PO DAILY PRN PRN Reason: SEVERE CONSITIPATION Morphine Sulfate (Morphine Inj) 2 mg IV.PUSH Q3H PRN PRN Reason: PAIN 3-5; IF UNABLE TO TAKE PO Morphine Sulfate (Morphine Inj) 4 mg IV.PUSH Q3H PRN PRN Reason: PAIN 6-10;IF UNABLE TO TAKE PO Naloxone HCl (Narcan Inj) 0.4 mg IV.PUSH UNSCH PRN PRN Reason: SEE LABEL COMMENTS Ondansetron HCl (Zofran Inj) 4 mg IV.PUSH Q6H PRN PRN Reason: NAUSEA OR VOMITING Patch Removal (Remove Old Patch) 1 each T-DERMAL Q7D [facility] Last Admin: 02/01/18 16:07 Dose: 1 each Senna/Docusate Sodium (Lori-Colace) 1 tab PO BID [facility] Last Admin: 02/01/18 20:45 Dose: Not Given Sennosides (Senokot) 17.2 mg PO Q12H PRN PRN Reason: Moderate Constipation Sodium Chloride (Ns Flush) 2 ml IV.FLUSH PRN PRN PRN Reason: FLUSH AFTER USING IV ACCESS Physical Exam Vital signs: Vital Signs 02/01/18 10:22 02/01/18 10:25 02/01/18 12:30 Temperature 98.2 F 98.4 F Pulse Rate 94 H 104 H 107 H Respiratory Rate 20 18 18 Blood Pressure 201/82 H 192/91 H 220/83 H Pulse Oximetry 96 98 95 02/01/18 13:19 02/01/18 16:00 02/01/18 20:00 Temperature 97.5 F L 97.9 F Pulse Rate 94 H 85 87 Respiratory Rate 18 18 17 Blood Pressure 175/79 H 143/77 H 129/60 Pulse Oximetry 94 L 92 L 92 L 02/02/18 00:00 02/02/18 04:00 Temperature 98.1 F 97.9 F Pulse Rate 86 85 Respiratory Rate 17 16 Blood Pressure 115/59 L 109/68 Pulse Oximetry 93 L 93 L Intake & Output 02/01/18 02/02/18 02/02/18 18:59 06:59 18:59 Intake Total 1100 / 1100 1600 / 1600 Output Total 600 / 600 600 / 600 Balance 500 / 500 1000 / 1000 Weight 130 lb 138 lb 3.677 oz Intake: IV 1100 / 1100 1050 / 1050 D5W/1/2NS + KCL 20 mEq Inj 1, 900 / 900 000 ML @ 80 mls/hr IV.CONT . [id number] [facility] Rx#:[id number] Zosyn 3.375 GM Premix 50 ML @ 50 / 50 100 mls/hr IV.SIG Q6H [facility] Rx#: [id number] KCl 20 mEq Premix Inj 20 meq In 100 / 100 100 / 100 100 ml @ 50 mls/hr IV.SIG Q2H [facility] Rx#:[id number] NS Inj 1,000 ML @ Wide Open IV. 1000 / 1000 SIG BOLUS ONE Rx#:[id number] Oral 550 / 550 Output: Urine 600 / 600 Gastric Drainage 600 / 600 Right Nare Nasogastric Tube 600 / 600 Narrative: GENERAL: Well-developed well-nourished frail elderly female. In no acute distress. NECK: No carotid bruits. No JVD. CARDIOVASCULAR: Irregular controlled rate and irregular rhythm. No murmur appreciated. RESPIRATORY: No accessory muscle use. Clear to auscultation. Breath sounds equal bilaterally. MUSCULOSKELETAL: No clubbing or cyanosis. No edema. NEUROLOGICAL: Awake and alert. Normal speech. Results 02/02/18 06:20 02/02/18 06:20 Cardiac Enzymes 02/01/18 02/01/18 Range/Units 11:16 19:16 AST 31 (15-37) U/L Troponin I 0.15 H 0.13 H (0.02-0.05) ng/mL CBC 02/01/18 02/02/18 Range/Units 11:16 06:20 WBC 14.8 H 10.8 (4.0-11.0) th/mm3 RBC 4.97 4.07 (4.00-5.30) mil/mm3 Hgb 15.2 12.5 D (11.6-15.3) gm/dL Hct 43.3 36.2 (35.0-46.0) % Plt Count 240 188 (150-450) th/mm3 Neut # (Auto) 10.7 H 6.6 (1.8-7.7) th/mm3 Lymph # (Auto) 2.3 2.3 (1.0-4.8) th/mm3 [place] # (Auto) 1.8 H 1.3 H (0.0-0.9) th/mm3 Eos # (Auto) 0.1 0.5 H (0.0-0.4) th/mm3 Baso # (Auto) 0.0 0.1 (0.0-0.2) th/mm3 Comprehensive Metabolic Panel 02/01/18 02/02/18 Range/Units 11:16 06:20 Sodium 127 L 136 (136-145) meq/L Potassium 2.7 L* 2.6 L* (3.5-5.1) meq/L Chloride 88 L 99 D (98-107) meq/L Carbon Dioxide 27.1 27.1 (21.0-32.0) meq/L BUN 23 H 18 (7-18) mg/dL Creatinine 0.98 0.87 (0.50-1.00) mg/dL Calcium 10.2 H 8.4 L D (8.5-10.1) mg/dL AST 31 (15-37) U/L ALT 23 (10-53) U/L Alkaline Phosphatase 57 (45-117) U/L Total Protein 8.1 (6.4-8.2) g/dL Albumin 3.9 (3.4-5.0) g/dL Intake and Output 02/01/18 02/02/18 02/02/18 22:59 06:59 14:59 Intake Total 100 / 100 1600 / 1600 Output Total 600 / 600 600 / 600 Balance -500 / -500 1000 / 1000 Intake: IV 100 / 100 1050 / 1050 D5W/1/2NS + KCL 20 mEq Inj 1, 900 / 900 000 ML @ 80 mls/hr IV.CONT . [id number] [facility] Rx#:[id number] Zosyn 3.375 GM Premix 50 ML @ 50 / 50 100 mls/hr IV.SIG Q6H [facility] Rx#: [id number] KCl 20 mEq Premix Inj 20 meq In 100 / 100 100 / 100 100 ml @ 50 mls/hr IV.SIG Q2H [facility] Rx#:[id number] Oral 550 / 550 Output: Urine 600 / 600 Gastric Drainage 600 / 600 Right Nare Nasogastric Tube 600 / 600 Other: Weight 138 lb 3.677 oz - Imaging and Cardiology Imaging: Impressions Abdomen/Pelvis CT 02/01/18 11:06 CONCLUSION: 1. Moderate distention of the mid and proximal small bowel with air-fluid levels which is increased compared to the prior study. The distal small bowel is nondilated. This suggests a mid to distal partial small bowel obstruction. 2. The bladder remains somewhat distended. 3. Otherwise, no other significant changes are seen compared to the prior study. Chest X-Ray 02/01/18 11:09 CONCLUSION: 1. Senescent changes with minimal positive fluid balance. Abdomen X-Ray 02/01/18 13:05 CONCLUSION: There is an NG tube in the stomach. Assessment and Plan - Assessment (1) Atrial fibrillation with rapid ventricular response Code(s): I48.91 - Unspecified atrial fibrillation Status: Acute - Plan Assessment: Patient has no prior history of known atrial fibrillation. I suspect that this is likely induced secondary to increased adrenergic tone related to both pain and abdominal obstruction. Given her age and the fact that she appears to be slightly demented with poor ambulation, I do not think she would be a good long- term anticoagulation anyway, and patient's daughter agrees. She is found to have a partial abdominal obstruction and is followed by general surgery. We will hold off on initiation of any aspirin until his determine whether or not she will need surgical intervention. At this point we can use a rate control strategy since we do not know the exact time of onset. On January 28 she was in normal sinus rhythm. 02/02 A. fib currently rate controlled off rate control medication Recommendations: Continue Cardizem gtt. as needed for now until patient can be converted to oral Cardizem when tolerating p.o. intake Echocardiogram pending. Discussed Condition With: Patient with daughter at bedside, hospitalist, Dr. Arriola - Attending Attestation agree with above will sign off call with further questions FU PCP
[2018-02-02] MEDS: Senna/Docusate Sodium 8.6/50 MG Tablet PO SCH ×2 (08:55→20:05)
--- NOTE | 2018-02-02 09:25 | XR ---
EXAM DATE: 02/02/2018 12:00 AM EDT AGE/SEX: 87 years / Female INDICATIONS: Evaluate for obstruction. CLINICAL DATA: This is the patient's subsequent encounter. Patient reports that signs and symptoms h ave been present for 3 days and indicates a pain score of 3/10. MEDICAL/SURGICAL HISTORY: . Carcinoma, lung. Hypertension. adenocarcinoma . Cholecystectomy. Hysterectomy. COMPARISON: [facility] [place], CT ABDOMEN & PELVIS W/O CONTRAST, 02/01/2018. . FINDINGS: There is an NGT in the stomach. Overall, there is a possibility of bowel gas with several centimeter air-fluid levels. Small amount of air is noted in the colon extending to the rectum. Extensive vascul ar calcifications. Remainder of exam is unchanged. CONCLUSION: 1. NGT is in the stomach. 2. Nonspecific paucity of small bowel gas. Although this may reflect interval decompression of the b owel loops following NG tube placement, it can also be seen with diffusely fluid-filled loops of maame l in the setting of bowel obstruction. Yesterday's CT examination does demonstrate primarily fluid-fi lled small bowel loops. Electronically signed by: Jayden Mclaughlin MD 02/02/2018 9:23 AM EDT
--- NOTE | 2018-02-02 10:14 | P.PN ---
Subjective Interval history: awake and alert no complains, wanting to have coffee NGT- draining bilious fluid feeling much better don't think she passed out flatus yet seen with daughter at 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- starting- daughter starting to wonder Physical Exam Vital signs: Vital Signs 02/01/18 10:22 02/01/18 10:25 02/01/18 12:30 Temperature 98.2 F 98.4 F Pulse Rate 94 H 104 H 107 H Respiratory Rate 20 18 18 Blood Pressure 201/82 H 192/91 H 220/83 H Pulse Oximetry 96 98 95 02/01/18 13:19 02/01/18 16:00 02/01/18 20:00 Temperature 97.5 F L 97.9 F Pulse Rate 94 H 85 87 Respiratory Rate 18 18 17 Blood Pressure 175/79 H 143/77 H 129/60 Pulse Oximetry 94 L 92 L 92 L 02/02/18 00:00 02/02/18 04:00 02/02/18 08:00 Temperature 98.1 F 97.9 F 98.1 F Pulse Rate 86 85 79 Respiratory Rate 17 16 17 Blood Pressure 115/59 L 109/68 101/58 L Pulse Oximetry 93 L 93 L 96 Intake & Output 02/01/18 02/02/18 02/02/18 18:59 06:59 18:59 Intake Total 1100 / 1100 1650 / 1650 Output Total 600 / 600 600 / 600 Balance 500 / 500 1050 / 1050 Weight 58.967 kg 62.7 kg Intake: IV 1100 / 1100 1100 / 1100 D5W/1/2NS + KCL 20 mEq Inj 1, 900 / 900 000 ML @ 80 mls/hr IV.CONT . [id number] [facility] Rx#:[id number] Zosyn 3.375 GM Premix 50 ML @ 100 / 100 100 mls/hr IV.SIG Q6H [facility] Rx#: [id number] KCl 20 mEq Premix Inj 20 meq In 100 / 100 100 / 100 100 ml @ 50 mls/hr IV.SIG Q2H [facility] Rx#:[id number] NS Inj 1,000 ML @ Wide Open IV. 1000 / 1000 SIG BOLUS ONE Rx#:[id number] Oral 550 / 550 Output: Urine 600 / 600 Gastric Drainage 600 / 600 Right Nare Nasogastric Tube 600 / 600 Narrative: GENERAL: Well-developed well-nourished frail elderly female. In no acute distress. NGT in place NECK: No carotid bruits. No JVD. CARDIOVASCULAR: Irregular controlled rate and irregular rhythm. No murmur appreciated. RESPIRATORY: No accessory muscle use. Clear to auscultation. Breath sounds equal bilaterally. abdomen- soft, + bowel sounds, non tender on exam, no rebound MUSCULOSKELETAL: No clubbing or cyanosis. No edema. NEUROLOGICAL: Awake and alert. Normal speech. Results - Labs CBC & Chem 7: 02/02/18 06:20 02/02/18 06:20 Laboratory Results - last 24 hr 02/01/18 02/01/18 02/01/18 11:16 11:16 15:47 WBC 14.8 H RBC 4.97 Hgb 15.2 Hct 43.3 MCV 87.0 MCH 30.6 MCHC 35.2 RDW 13.7 Plt Count 240 MPV 10.5 Neut % (Auto) 72.2 H Lymph % (Auto) 15.2 [place] % (Auto) 11.9 H Eos % (Auto) 0.4 Baso % (Auto) 0.3 Neut # (Auto) 10.7 H Lymph # (Auto) 2.3 [place] # (Auto) 1.8 H Eos # (Auto) 0.1 Baso # (Auto) 0.0 WBC Differential . Differential Comment Auto diff final Sodium 127 L Potassium 2.7 L* Chloride 88 L Carbon Dioxide 27.1 Anion Gap 12 BUN 23 H Creatinine 0.98 Estimated GFR 54 L Random Glucose 125 H Calcium 10.2 H Magnesium 1.8 Total Bilirubin 0.9 AST 31 ALT 23 Alkaline Phosphatase 57 Troponin I 0.15 H Total Protein 8.1 Albumin 3.9 Lipase 166 TSH 2.140 Urine Color Yellow Urine Clarity Clear Urine pH 6.0 Ur Specific [place] 1.013 Urine Protein Negative Urine Glucose (UA) Negative Urine Ketones 20 Urine Occult Blood Negative Urine Nitrate Negative Urine Bilirubin Negative Urine Urobilinogen Less than 2 Ur Leukocyte Esterase Negative Urine RBC 1 Urine WBC 3 Ur Squamous Epith Cells 1 Hyaline Casts 1 Micro UA Comment Culture not ind Ur Microscopic Review Not Reportable Urine Culture Comments Culture not ind 02/01/18 02/02/18 02/02/18 19:16 06:20 06:20 WBC 10.8 RBC 4.07 Hgb 12.5 D Hct 36.2 MCV 88.9 MCH 30.7 MCHC 34.5 RDW 13.8 Plt Count 188 MPV 9.6 Neut % (Auto) 61.1 Lymph % (Auto) 21.1 [place] % (Auto) 12.0 H Eos % (Auto) 5.0 H Baso % (Auto) 0.8 Neut # (Auto) 6.6 Lymph # (Auto) 2.3 [place] # (Auto) 1.3 H Eos # (Auto) 0.5 H Baso # (Auto) 0.1 WBC Differential . Differential Comment Auto diff final Sodium 136 Potassium 2.6 L* Chloride 99 D Carbon Dioxide 27.1 Anion Gap 10 BUN 18 Creatinine 0.87 Estimated GFR 62 L Random Glucose 99 Calcium 8.4 L D Magnesium Total Bilirubin AST ALT Alkaline Phosphatase Troponin I 0.13 H Total Protein Albumin Lipase TSH Urine Color Urine Clarity Urine pH Ur Specific [place] Urine Protein Urine Glucose (UA) Urine Ketones Urine Occult Blood Urine Nitrate Urine Bilirubin Urine Urobilinogen Ur Leukocyte Esterase Urine RBC Urine WBC Ur Squamous Epith Cells Hyaline Casts Micro UA Comment Ur Microscopic Review Urine Culture Comments - Imaging Impressions Abdomen/Pelvis CT 02/01/18 11:06 CONCLUSION: 1. Moderate distention of the mid and proximal small bowel with air-fluid levels which is increased compared to the prior study. The distal small bowel is nondilated. This suggests a mid to distal partial small bowel obstruction. 2. The bladder remains somewhat distended. 3. Otherwise, no other significant changes are seen compared to the prior study. Chest X-Ray 02/01/18 11:09 CONCLUSION: 1. Senescent changes with minimal positive fluid balance. Abdomen X-Ray 02/01/18 13:05 CONCLUSION: There is an NG tube in the stomach. Abdomen X-Ray 02/02/18 00:00 CONCLUSION: 1. NGT is in the stomach. 2. Nonspecific paucity of small bowel gas. Although this may reflect interval decompression of the bowel loops following NG tube placement, it can also be seen with diffusely fluid-filled loops of bowel in the setting of bowel obstruction. Yesterday's CT examination does demonstrate primarily fluid-filled small bowel loops. Assessment and Plan - Plan 87-year-old white female with a history of hypertension hyperlipidemia was initially seen in the ED on January 28 with diagnoses of possibly colitis and discharged on oral Cipro and Flagyl now re-presented with recurrent and intractable nausea vomiting abdominal pain with new onset of atrial fibrillation. SBO - Abdominal pain with intractable nausea and vomiting with possible findings of partial bowel obstruction on CT - Continue IV fluid hydration for supportive care and n.p.o. continue with NG tube to suction for decompression.- monitor output GI consultation for further recommendation Consideration for general surgery consult in the next 24 hours if clinical symptoms does not improve and for consideration of evaluation for ischemic bowel due to findings of new onset of atrial fibrillation. Abdominal flat and upright in the morning for further evaluation. Zosyn IV for empiric coverage New onset of atrial fibrillationCardizem drip to titrate for heart rate less than 100. Lovenox to be initiated. Obtain a 2D echo for further workup and obtain an cardiology consultation. Mild elevation troponin I may be due to demand capacity and will trend. Patient at this time denies any active complaints of chest pain. Hypertension urgencyblood pressure improved on Cardizem. IV Vasotec as needed will be initiated. HYpokalemia - give IV KCL 10 mmeq x 3 KCL in main IVF- increae to 30 meq - 80 cc/hr ff lytes 4. Hyperlipidemia, chronichold home medication due to n.p.o. status. 5. Hyponatremia due to hypovolemia from intractable nausea vomitingIV fluids and supportive care. DVT prophylaxisLovenox.
[2018-02-02] MEDS: Potassium Chlor 10 mEq Premix 10 MEQ/100 ML PIGGYBACK IV.SIG SCH ×3 (11:11→14:15)
[2018-02-02] MEDS ORDERED: Sodium Chloride 0.9% 2 ML Flush PRN IV.FLUSH (11:31)
--- NOTE | 2018-02-02 11:32 | P.CONGI ---
History of Present Illness Consult date: 02/02/18 Consult reason: Bowel obstruction Chief complaint: SBO, Elevated Troponin, new onset A fib, History of Present Illness: This patient is an 87-year-old female with a history of hyperlipidemia, hypertension, essential tremor, bone cancer, early dementia, and new onset atrial fibrillation. Patient presented to the emergency room yesterday with complaints of worsening abdominal pain with nausea and vomiting. Patient was originally examined on January 28, 2018 at [place] emergency room for abdominal pain, CT was done which showed thickening of the sigmoid colon with possible colitis and patient was given a prescription for Cipro and Flagyl. Although she had been taking the antibiotics her symptoms did not improved and she presented yesterday with increasing pain, intractable nausea and episodes of bilious vomiting which she describes as green to dark brown in color. Patient denies dark or black tarry stools and denies any obvious bleeding in emesis. Abdominal x-ray done on arrival revealed bowel obstruction. Patient has NG tube in place to this point has drained 400 mL's of dark bilious fluid. Patient denies any abdominal pain or nausea at this time. Patient denies constipation or diarrhea. She states she moves her bowels every 3-4 days and it is normally soft and brown. Patient denies the use of any blood thinners including aspirin. States she does not know her family history due to being adopted. States she had a colonoscopy and EGD "years ago". Daughter reports no abnormal findings. Patient denies any difficulty swallowing or heartburn. Of note, patient was found to be in atrial fibrillation with a controlled rate upon admission. Our service has been consulted to evaluate patient's bowel obstruction. <Geeta Aguillon - Last Filed: 02/02/18 11:18> Review of Systems All other systems reviewed negative except as stated in HPI <Geeta Aguillon - Last Filed: 02/02/18 11:18> PMFSH - History History Provided By: Patient - Medical History Medical History: Medical History (Last Reviewed 02/02/18 @ 08:03 by Jesus Alberto Downs) Bone cancer Skin cancer Essential tremor Hyperlipidemia Hypertension - Surgical History Surgical History: Surgical History (Last Reviewed 02/02/18 @ 08:03 by Jesus Alberto Downs) History of hysterectomy (Acute) Hx of cholecystectomy - Family History Family History: Family History (Last Updated 02/01/18 @ 14:22 by Lynsey Hull MD) Other Family history not known due to adoption - Tobacco History Second Hand Smoke Exposure: No Tobacco Use In Past 30 Days: No Smoking Status: Never smoker - Alcohol History How Often Do You Have a Drink Containing Alcohol: Never - Substance Use History Substance History: No History of Abuse - Travel History Recent Travel in the [place] Within the Last 8 Weeks: No Recent Travel Out of the Country Within the Last 8 Weeks: No - Immunization History Tetanus Immunization: <5 Years <Geeta Aguillon - Last Filed: 02/02/18 11:18> - Medical History Medical History: Medical History (Last Reviewed 02/02/18 @ 08:03 by Jesus Alberto Downs) Bone cancer Skin cancer Essential tremor Hyperlipidemia Hypertension - Surgical History Surgical History: Surgical History (Last Reviewed 02/02/18 @ 08:03 by Jesus Alberto Downs) History of hysterectomy (Acute) Hx of cholecystectomy - Family History Family History: Family History (Last Updated 02/01/18 @ 14:22 by Lynsey Hull MD) Other Family history not known due to adoption <Tyson Francis - Last Filed: 02/02/18 20:03> Medications and Allergies Active Medications: Active Medications Acetaminophen (Tylenol) 650 mg PO Q6HR PRN PRN Reason: PAIN SCALE 1 TO 2 Al Hydroxide/Mg Hydroxide (Milk Of Josette Oconnell) 30 ml PO Q12H PRN PRN Reason: Mild Constipation Bisacodyl (Dulcolax Supp) 10 mg RECTAL DAILY PRN PRN Reason: SEVERE CONSITIPATION Clonidine HCl (Catapress-Tts 0.1 Mg Patch.7d) 1 patch T-DERMAL Q7D [facility] Last Admin: 02/01/18 16:06 Dose: 1 patch Enalaprilat (Vasotec Inj) 1.25 mg IV.PUSH Q6H PRN PRN Reason: SEE LABEL COMMENTS Last Admin: 02/01/18 14:36 Dose: 1.25 mg Enoxaparin Sodium (Lovenox Inj) 60 mg SQ Q12H [facility] Last Admin: 02/02/18 04:04 Dose: 60 mg Diltiazem HCl 125 mg/ Sodium (Chloride) 125 mls @ 5 mls/hr IV.CONT TITRATE PRN ; Protocol PRN Reason: Per Protocol Potassium Chloride/Dextrose/Sod Cl (D5w/1/2ns + Kcl 20 Meq Inj) 1,000 mls @ 80 mls/hr IV.CONT .[id number] [facility] Last Admin: 02/02/18 06:31 Dose: 80 mls/hr Piperacillin/Tazobactam/Dextrose (Zosyn 3.375 Gm Premix) 50 mls @ 100 mls/hr IV.SIG Q6H [facility] Last Admin: 02/02/18 08:59 Dose: 100 mls/hr Potassium Chloride (Kcl 10 Meq Premix Inj) 10 meq in 100 mls @ 100 mls/hr IV.SIG Q1H [facility] Stop: 02/02/18 13:29 Last Admin: 02/02/18 11:11 Dose: 100 mls/hr Lactulose (Lactulose Liq) 30 ml PO DAILY PRN PRN Reason: SEVERE CONSITIPATION Morphine Sulfate (Morphine Inj) 2 mg IV.PUSH Q3H PRN PRN Reason: PAIN 3-5; IF UNABLE TO TAKE PO Morphine Sulfate (Morphine Inj) 4 mg IV.PUSH Q3H PRN PRN Reason: PAIN 6-10;IF UNABLE TO TAKE PO Naloxone HCl (Narcan Inj) 0.4 mg IV.PUSH UNSCH PRN PRN Reason: SEE LABEL COMMENTS Ondansetron HCl (Zofran Inj) 4 mg IV.PUSH Q6H PRN PRN Reason: NAUSEA OR VOMITING Patch Removal (Remove Old Patch) 1 each T-DERMAL Q7D [facility] Last Admin: 02/01/18 16:07 Dose: 1 each Senna/Docusate Sodium (Lori-Colace) 1 tab PO BID [facility] Last Admin: 02/02/18 08:55 Dose: 1 tab Sennosides (Senokot) 17.2 mg PO Q12H PRN PRN Reason: Moderate Constipation Sodium Chloride (Ns Flush) 2 ml IV.FLUSH PRN PRN PRN Reason: FLUSH AFTER USING IV ACCESS <Geeta Aguillon - Last Filed: 02/02/18 11:18> Active Medications: Active Medications Acetaminophen (Tylenol) 650 mg PO Q6HR PRN PRN Reason: PAIN SCALE 1 TO 2 Al Hydroxide/Mg Hydroxide (Milk Of Magnesia Liq) 30 ml PO Q12H PRN PRN Reason: Mild Constipation Bisacodyl (Dulcolax Supp) 10 mg RECTAL DAILY PRN PRN Reason: SEVERE CONSITIPATION Clonidine HCl (Catapress-Tts 0.1 Mg Patch.7d) 1 patch T-DERMAL Q7D [facility] Last Admin: 02/01/18 16:06 Dose: 1 patch Enalaprilat (Vasotec Inj) 1.25 mg IV.PUSH Q6H PRN PRN Reason: SEE LABEL COMMENTS Last Admin: 02/01/18 14:36 Dose: 1.25 mg Enoxaparin Sodium (Lovenox Inj) 60 mg SQ Q12H [facility] Last Admin: 02/02/18 17:39 Dose: 60 mg Diltiazem HCl 125 mg/ Sodium (Chloride) 125 mls @ 5 mls/hr IV.CONT TITRATE PRN ; Protocol PRN Reason: Per Protocol Piperacillin/Tazobactam/Dextrose (Zosyn 3.375 Gm Premix) 50 mls @ 100 mls/hr IV.SIG Q6H [facility] Last Admin: 02/02/18 17:39 Dose: 100 mls/hr Potassium Chloride 30 meq/ (Dextrose/Sodium Chloride) 1,015 mls @ 84 mls/hr IV.CONT .Q12H5M [facility] Last Admin: 02/02/18 17:29 Dose: 84 mls/hr Lactulose (Lactulose Liq) 30 ml PO DAILY PRN PRN Reason: SEVERE CONSITIPATION Morphine Sulfate (Morphine Inj) 2 mg IV.PUSH Q3H PRN PRN Reason: PAIN 3-5; IF UNABLE TO TAKE PO Morphine Sulfate (Morphine Inj) 4 mg IV.PUSH Q3H PRN PRN Reason: PAIN 6-10;IF UNABLE TO TAKE PO Naloxone HCl (Narcan Inj) 0.4 mg IV.PUSH UNSCH PRN PRN Reason: SEE LABEL COMMENTS Ondansetron HCl (Zofran Inj) 4 mg IV.PUSH Q6H PRN PRN Reason: NAUSEA OR VOMITING Pantoprazole Sodium (Protonix Inj) 40 mg IV.PUSH Q12HR [facility] Last Admin: 02/02/18 14:15 Dose: 40 mg Patch Removal (Remove Old Patch) 1 each T-DERMAL Q7D [facility] Last Admin: 02/01/18 16:07 Dose: 1 each Senna/Docusate Sodium (Lori-Colace) 1 tab PO BID [facility] Last Admin: 02/02/18 08:55 Dose: 1 tab Sennosides (Senokot) 17.2 mg PO Q12H PRN PRN Reason: Moderate Constipation Sodium Chloride (Ns Flush) 2 ml IV.FLUSH BID [facility] Sodium Chloride (Ns Flush) 2 ml IV.FLUSH PRN PRN PRN Reason: FLUSH AFTER USING IV ACCESS <Tyson Francis E - Last Filed: 02/02/18 20:03> Allergies Allergy/AdvReac Type Severity Reaction Status Date / Time atorvastatin Allergy Severe SWELLING Unverified 01/28/18 16:38 codeine Allergy Severe NAUSEA Unverified 01/28/18 16:38 loratadine Allergy Severe SWELLING Unverified 01/28/18 16:38 meperidine Allergy Severe NAUSEA Unverified 01/28/18 16:38 iohexol Allergy Unknown PT.ALLERGIC Unverified 01/28/18 16:38 TO PREDNISON/DO NOT PREMED!! Home Medications Medication Instructions Recorded Confirmed Type amiloride-hydrochlorothiazide 1 tab PO DAILY 01/28/18 02/01/18 History amlodipine 10 mg PO DAILY 01/28/18 02/01/18 History aspirin 81 mg PO DAILY 01/28/18 02/01/18 History benazepril 40 mg PO DAILY 01/28/18 02/01/18 History gabapentin 100 mg PO DAILY 01/28/18 02/01/18 History ipratropium bromide 2 spray INTRANASAL TID 01/28/18 02/01/18 History meclizine 25 mg PO TID PRN 01/28/18 02/01/18 History metoprolol succinate 100 mg PO DAILY 01/28/18 02/01/18 History oxybutynin chloride 10 mg PO DAILY 01/28/18 02/01/18 History pravastatin 80 mg PO DAILY 01/28/18 02/01/18 History primidone 50 mg PO DAILY 01/28/18 02/01/18 History Exam Vital signs: Vital Signs 02/01/18 12:30 02/01/18 13:19 02/01/18 16:00 Temperature 97.5 F L Pulse Rate 107 H 94 H 85 Respiratory Rate 18 18 18 Blood Pressure 220/83 H 175/79 H 143/77 H Pulse Oximetry 95 94 L 92 L 02/01/18 20:00 02/02/18 00:00 02/02/18 04:00 Temperature 97.9 F 98.1 F 97.9 F Pulse Rate 87 86 85 Respiratory Rate 17 17 16 Blood Pressure 129/60 115/59 L 109/68 Pulse Oximetry 92 L 93 L 93 L 02/02/18 08:00 Temperature 98.1 F Pulse Rate 66 Respiratory Rate 17 Blood Pressure 101/58 L Pulse Oximetry 96 Intake & Output 02/01/18 02/02/18 02/02/18 18:59 06:59 18:59 Intake Total 1100 / 1100 1650 / 1650 Output Total 600 / 600 600 / 600 Balance 500 / 500 1050 / 1050 Weight 58.967 kg 62.7 kg Intake: IV 1100 / 1100 1100 / 1100 D5W/1/2NS + KCL 20 mEq Inj 1, 900 / 900 000 ML @ 80 mls/hr IV.CONT . [id number] [facility] Rx#:[id number] Zosyn 3.375 GM Premix 50 ML @ 100 / 100 100 mls/hr IV.SIG Q6H [facility] Rx#: [id number] KCl 20 mEq Premix Inj 20 meq In 100 / 100 100 / 100 100 ml @ 50 mls/hr IV.SIG Q2H [facility] Rx#:[id number] NS Inj 1,000 ML @ Wide Open IV. 1000 / 1000 SIG BOLUS ONE Rx#:[id number] Oral 550 / 550 Output: Urine 600 / 600 Gastric Drainage 600 / 600 Right Nare Nasogastric Tube 600 / 600 - Constitutional no acute distress - Routine HEENT Exam Head: Present: normocephalic Comments: NG tube in place to low intermittent wall suction - Routine Respiratory Exam Present: CTA bilaterally. Absent: accessory muscle use - Routine Cardiovascular Exam Present: irregularly irregular - Routine Abdominal Exam Present: soft, distended. Absent: tenderness, guarding, firm Comments: Diminished bowel sounds - Routine Extremities Exam Present: full ROM, pulses intact. Absent: edema - Routine Skin Exam Present: dry, warm - Routine Neurological Exam Present: alert <Aguillon,Geeta - Last Filed: 02/02/18 11:18> Vital signs: Vital Signs 02/02/18 00:00 02/02/18 04:00 02/02/18 08:00 Temperature 98.1 F 97.9 F 98.1 F Pulse Rate 86 85 66 Respiratory Rate 17 16 17 Blood Pressure 115/59 L 109/68 101/58 L Pulse Oximetry 93 L 93 L 96 02/02/18 12:00 02/02/18 16:00 Temperature 97.2 F L 97.8 F Pulse Rate 77 75 Respiratory Rate 17 18 Blood Pressure 146/73 H 132/63 Pulse Oximetry 91 L 91 L Intake & Output 02/02/18 02/02/18 02/03/18 06:59 18:59 06:59 Intake Total 1650 / 1650 350 / 350 Output Total 600 / 600 Balance 1050 / 1050 350 / 350 Weight 62.7 kg Intake: IV 1100 / 1100 350 / 350 D5W/1/2NS + KCL 20 mEq Inj 1, 900 / 900 000 ML @ 80 mls/hr IV.CONT . [id number] [facility] Rx#:[id number] Zosyn 3.375 GM Premix 50 ML @ 100 / 100 50 / 50 100 mls/hr IV.SIG Q6H [facility] Rx#: [id number] KCl 10 mEq Premix Inj 10 meq In 300 / 300 100 ml @ 100 mls/hr IV.SIG Q1H [facility] Rx#:[id number] KCl 20 mEq Premix Inj 20 meq In 100 / 100 100 ml @ 50 mls/hr IV.SIG Q2H [facility] Rx#:[id number] Oral 550 / 550 Output: Urine 600 / 600 Other: # Voids 2 Date of Last Bowel Movement 02/02/18 # Bowel Movements 1 <Tyson Francis E - Last Filed: 02/02/18 20:03> Results - Labs CBC & Chem 7: 02/02/18 06:20 02/02/18 06:20 Labs: Laboratory Results - last 24 hr 02/01/18 02/01/18 02/01/18 11:16 11:16 15:47 WBC 14.8 H RBC 4.97 Hgb 15.2 Hct 43.3 MCV 87.0 MCH 30.6 MCHC 35.2 RDW 13.7 Plt Count 240 MPV 10.5 Neut % (Auto) 72.2 H Lymph % (Auto) 15.2 Edgar % (Auto) 11.9 H Eos % (Auto) 0.4 Baso % (Auto) 0.3 Neut # (Auto) 10.7 H Lymph # (Auto) 2.3 Edgar # (Auto) 1.8 H Eos # (Auto) 0.1 Baso # (Auto) 0.0 WBC Differential . Differential Comment Auto diff final Sodium 127 L Potassium 2.7 L* Chloride 88 L Carbon Dioxide 27.1 Anion Gap 12 BUN 23 H Creatinine 0.98 Estimated GFR 54 L Random Glucose 125 H Calcium 10.2 H Magnesium 1.8 Total Bilirubin 0.9 AST 31 ALT 23 Alkaline Phosphatase 57 Troponin I 0.15 H Total Protein 8.1 Albumin 3.9 Lipase 166 TSH 2.140 Urine Color Yellow Urine Clarity Clear Urine pH 6.0 Ur Specific [place] 1.013 Urine Protein Negative Urine Glucose (UA) Negative Urine Ketones 20 Urine Occult Blood Negative Urine Nitrate Negative Urine Bilirubin Negative Urine Urobilinogen Less than 2 Ur Leukocyte Esterase Negative Urine RBC 1 Urine WBC 3 Ur Squamous Epith Cells 1 Hyaline Casts 1 Micro UA Comment Culture not ind Ur Microscopic Review Not Reportable Urine Culture Comments Culture not ind 02/01/18 02/02/18 02/02/18 19:16 06:20 06:20 WBC 10.8 RBC 4.07 Hgb 12.5 D Hct 36.2 MCV 88.9 MCH 30.7 MCHC 34.5 RDW 13.8 Plt Count 188 MPV 9.6 Neut % (Auto) 61.1 Lymph % (Auto) 21.1 Edgar % (Auto) 12.0 H Eos % (Auto) 5.0 H Baso % (Auto) 0.8 Neut # (Auto) 6.6 Lymph # (Auto) 2.3 Edgar # (Auto) 1.3 H Eos # (Auto) 0.5 H Baso # (Auto) 0.1 WBC Differential . Differential Comment Auto diff final Sodium 136 Potassium 2.6 L* Chloride 99 D Carbon Dioxide 27.1 Anion Gap 10 BUN 18 Creatinine 0.87 Estimated GFR 62 L Random Glucose 99 Calcium 8.4 L D Magnesium Total Bilirubin AST ALT Alkaline Phosphatase Troponin I 0.13 H Total Protein Albumin Lipase TSH Urine Color Urine Clarity Urine pH Ur Specific [place] Urine Protein Urine Glucose (UA) Urine Ketones Urine Occult Blood Urine Nitrate Urine Bilirubin Urine Urobilinogen Ur Leukocyte Esterase Urine RBC Urine WBC Ur Squamous Epith Cells Hyaline Casts Micro UA Comment Ur Microscopic Review Urine Culture Comments - Imaging Impressions Abdomen/Pelvis CT 02/01/18 11:06 CONCLUSION: 1. Moderate distention of the mid and proximal small bowel with air-fluid levels which is increased compared to the prior study. The distal small bowel is nondilated. This suggests a mid to distal partial small bowel obstruction. 2. The bladder remains somewhat distended. 3. Otherwise, no other significant changes are seen compared to the prior study. Chest X-Ray 02/01/18 11:09 CONCLUSION: 1. Senescent changes with minimal positive fluid balance. Abdomen X-Ray 02/01/18 13:05 CONCLUSION: There is an NG tube in the stomach. Abdomen X-Ray 02/02/18 00:00 CONCLUSION: 1. NGT is in the stomach. 2. Nonspecific paucity of small bowel gas. Although this may reflect interval decompression of the bowel loops following NG tube placement, it can also be seen with diffusely fluid-filled loops of bowel in the setting of bowel obstruction. Yesterday's CT examination does demonstrate primarily fluid-filled small bowel loops. <Geeta Aguillon - Last Filed: 02/02/18 11:18> - Labs CBC & Chem 7: 02/02/18 06:20 02/02/18 06:20 Labs: Laboratory Results - last 24 hr 02/01/18 02/02/18 02/02/18 19:16 06:20 06:20 WBC 10.8 RBC 4.07 Hgb 12.5 D Hct 36.2 MCV 88.9 MCH 30.7 MCHC 34.5 RDW 13.8 Plt Count 188 MPV 9.6 Neut % (Auto) 61.1 Lymph % (Auto) 21.1 Edgar % (Auto) 12.0 H Eos % (Auto) 5.0 H Baso % (Auto) 0.8 Neut # (Auto) 6.6 Lymph # (Auto) 2.3 Edgar # (Auto) 1.3 H Eos # (Auto) 0.5 H Baso # (Auto) 0.1 WBC Differential . Differential Comment Auto diff final Sodium 136 Potassium 2.6 L* Chloride 99 D Carbon Dioxide 27.1 Anion Gap 10 BUN 18 Creatinine 0.87 Estimated GFR 62 L Random Glucose 99 Calcium 8.4 L D Troponin I 0.13 H - Imaging Impressions Abdomen X-Ray 02/02/18 00:00 CONCLUSION: 1. NGT is in the stomach. 2. Nonspecific paucity of small bowel gas. Although this may reflect interval decompression of the bowel loops following NG tube placement, it can also be seen with diffusely fluid-filled loops of bowel in the setting of bowel obstruction. Yesterday's CT examination does demonstrate primarily fluid-filled small bowel loops. <Sa Titoantonette Haji - Last Filed: 02/02/18 20:03> Assessment and Plan (1) Partial small bowel obstruction Status: Acute Code(s): K56.600 - Partial intestinal obstruction, unspecified as to cause - Plan This patient is an 87-year-old female with a history of hyperlipidemia, hypertension, essential tremor, bone cancer, early dementia, and new onset atrial fibrillation. Patient presented to the emergency room yesterday with complaints of worsening abdominal pain with nausea and vomiting. Patient was originally examined on January 28, 2018 at [place] emergency room for abdominal pain, CT was done which showed thickening of the sigmoid colon with possible colitis and patient was given a prescription for Cipro and Flagyl. Although she had been taking the antibiotics her symptoms did not improved and she presented yesterday with increasing pain, intractable nausea and episodes of bilious vomiting which she describes as green to dark brown in color. Patient denies dark or black tarry stools and denies any obvious bleeding in emesis. Abdominal x-ray done on arrival revealed bowel obstruction. Patient has NG tube in place to this point has drained 400 mL's of dark bilious fluid. Patient denies any abdominal pain or nausea at this time. Patient denies constipation or diarrhea. She states she moves her bowels every 3-4 days and it is normally soft and brown. Patient denies the use of any blood thinners including aspirin. States she does not know her family history due to being adopted. States she had a colonoscopy and EGD "years ago". Daughter reports no abnormal findings. Patient denies any difficulty swallowing or heartburn. Of note, patient was found to be in atrial fibrillation with a controlled rate upon admission. Our service has been consulted to evaluate patient's bowel obstruction. Partial bowel obstruction Abdominal x-ray with results as noted above. NG tube in place draining copious amounts of dark bilious fluid. Hemoglobin 12.5 hematocrit 36.2 platelet count 188 troponin elevated at 0.13. We will follow-up with [facility] in the a.m. Plan -N.p.o. -NG to low intermittent wall suction -Continue IV antibiotics -Antiemetics and analgesics as per attending -We will add pantoprazole -KUB in the a.m. -Supportive care -Further recommendations to follow based on status and findings This patient has been seen by myself and Dr. Francis and this note is written on his behalf - Attending Attestation Dr. Francis <Geeta Aguillon - Last Filed: 02/02/18 11:18> (1) Partial small bowel obstruction Status: Acute Code(s): K56.600 - Partial intestinal obstruction, unspecified as to cause - Plan Patient seen and examined Agree with above history and physical Continue with current supportive care Monitor labs Appears to be small bowel obstruction possibly resolving we will proceed with an upper GI series with small bowel follow-through with Gastrografin shows to further evaluate for ongoing obstruction if that is the case the patient will need a surgical evaluation <Tyson Francis - Last Filed: 02/02/18 20:03>
--- NOTE | 2018-02-02 14:04 | ECHRPT ---
Indication: AFIB AND FLUTTER CONCLUSIONS Normal left ventricular size. Mild concentric left ventricular hypertrophy. The left ventricular systolic function is normal with an estimated ejection fraction in the range of 55-60%. The left atrial size is moderately dilated. Moderate mitral annular calcification. Trace mitral valve regurgitation. Mild thickening of the tricuspid valve leaflets. There is mild tricuspid valve regurgitation. The estimated pulmonary arterial pressure is 38 mmHg. BP: / HR: Rhythm: MEASUREMENTS (Male / Female) Normal Values Technical Quality: 2D ECHO LV Diastolic Diameter PLAX 3.9 cm 4.2 - 5.9 / 3.9 - 5.3 cm LV Systolic Diameter PLAX 2.9 cm IVS Diastolic Thickness 1.2 cm 0.6 - 1.0 / 0.6 - 0.9 cm LVPW Diastolic Thickness 1.3 cm 0.6 - 1.0 / 0.6 - 0.9 cm LV Relative Wall Thickness 0.6 RV Internal Dim ED PLAX 2.4 cm LVOT Diameter 1.8 cm Aortic Root Diameter 3.3 cm LA Systolic Diameter LX 3.2 cm 3.0 - 4.0 / 2.7 - 3.8 cm LV Ejection Fraction MOD 4C 56.5 % LV Ejection Fraction 4C AL 59.4 % M-MODE Aortic Root Diameter MM 3.7 cm LA Systolic Diameter MM 4.2 cm LA Ao Ratio MM 1.1 AV Cusp Separation MM 1.9 cm DOPPLER AV Peak Velocity 129.0 cm/s AV Peak Gradient 6.7 mmHg LVOT Peak Velocity 91.8 cm/s LVOT Peak Gradient 3.4 mmHg AV Area Cont Eq pk 1.8 cm Mitral E Point Velocity 58.7 cm/s Mitral A Point Velocity 57.8 cm/s Mitral E to A Ratio 1.0 LV E' Lateral Velocity 4.8 cm/s Mitral E to LV E' Lateral Ratio 12.3 LV E' Septal Velocity 6.6 cm/s Mitral E to LV E' Septal Ratio 8.9 TR Peak Velocity 265.0 cm/s TR Peak Gradient 28.1 mmHg Right Atrial Pressure 10.0 mmHg Pulmonary Artery Systolic Pressu 38.1 mmHg Right Ventricular Systolic Press 38.1 mmHg PV Peak Velocity 105.0 cm/s PV Peak Gradient 4.4 mmHg FINDINGS LEFT VENTRICLE Normal left ventricular size. Mild concentric left ventricular hypertrophy. The left ventricular systolic function is normal with an estimated ejection fraction in the range of 55-60%. RIGHT VENTRICLE Normal right ventricular size and systolic function. LEFT ATRIUM The left atrial size is moderately dilated. RIGHT ATRIUM The right atrial size is normal. ATRIAL SEPTUM Normal atrial septal thickness without atrial level shunting by limited color doppler interrogation. AORTA The aortic root and proximal ascending aorta are normal in size on limited imaging. MITRAL VALVE Moderate mitral annular calcification. Trace mitral valve regurgitation. AORTIC VALVE Trileaflet aortic valve. No aortic valve stenosis or regurgitation. TRICUSPID VALVE Mild thickening of the tricuspid valve leaflets. There is mild tricuspid valve regurgitation. The estimated pulmonary arterial pressure is 38 mmHg. PULMONARY VALVE No pulmonary valve regurgitation or stenosis. VESSELS The inferior vena cava is normal in size. PERICARDIUM No pericardial effusion. Kemar Arriola MD, FACC (Electronically Signed) Final Date:02 February 2018 14:03
[2018-02-02] MEDS: Pantoprazole Inj 40 MG Vial IV.PUSH SCH ×2 (14:15→20:05)
[2018-02-02] MEDS: Potassium Chloride Inj 30 MEQ in Dextrose 5%/NaCl 0.9% Inj 1,000 ML IV.CONT SCH (17:29)
[2018-02-02] MEDS: Sodium Chloride 0.9% 2 ML Flush BID IV.FLUSH SCH (20:05)
[2018-02-03] MEDS: Potassium Chloride Inj 30 MEQ in Dextrose 5%/NaCl 0.9% Inj 1,000 ML IV.CONT SCH ×2 (03:42→15:59)
[2018-02-03] MEDS: Enoxaparin Inj 60 MG/0.6 ML Syringe SQ SCH ×2 (03:42→16:00)
[2018-02-03] MEDS: Piperacil/Tazo 3.375 GM Premix 50 ML IV.SIG SCH ×2 (03:42→18:46)
--- NOTE | 2018-02-03 06:25 | XR ---
EXAM DATE: 02/03/2018 5:00 AM EDT AGE/SEX: 87 years / Female INDICATIONS: Bowel obstruction. CLINICAL DATA: This is the patient's subsequent encounter. Patient reports that signs and symptoms h ave been present for 1 week and indicates a pain score of 0/10. MEDICAL/SURGICAL HISTORY: Carcinoma, lung. Hypertension. adenocarcinoma . Cholecystectomy. H ysterectomy. COMPARISON: No prior exams available for comparison. FINDINGS: There is a mildly distended segment of small bowel measuring 3.5 cm seen in the left lateral lower a bdomen.. No abnormal masses or organomegaly is seen. Surgical hardware seen in the lower lumbar spin e. Bowel taras are seen in the pelvis. Phleboliths are seen in the pelvis. There is a possible NG t ube tip in the right upper quadrant likely in the distal stomach. Vascular calcifications are seen. CONCLUSION: Nonspecific small area of dilated small bowel the left lateral lower abdomen. Electronically signed by: Dany Cortés MD 02/03/2018 6:24 AM EDT
[2018-02-03] MEDS: Pantoprazole Inj 40 MG Vial IV.PUSH SCH ×2 (08:49→21:09)
[2018-02-03] MEDS: Sodium Chloride 0.9% 2 ML Flush BID IV.FLUSH SCH ×2 (08:51→21:10)
[2018-02-03] MEDS: Senna/Docusate Sodium 8.6/50 MG Tablet PO SCH ×2 (08:54→21:09)
[2018-02-03] MEDS ORDERED: Diatrizoate Meglum/Diatrizoate Sod Liq 120 ML Bottle (for RAD diag) NG/OG ONE (09:45)
[2018-02-03 10:00] LABS: Calcium 8.7 mg/dL (8.5-10.1); Carbon Dioxide 26.7 meq/L (21.0-32.0); Magnesium 1.9 mg/dL (1.5-2.5); Potassium 3.1 meq/L (3.5-5.1)
--- NOTE | 2018-02-03 15:58 | P.PNGI ---
Subjective Interval history: Patient in bed laying on side, reporting nausea and intermittent vomiting small amounts of bilious emesis. NG clamped for additional pictures needed for small bowel follow-through <Geeta Aguillon - Last Filed: 02/03/18 15:52> Physical Exam Vital signs: Vital Signs 02/02/18 16:00 02/02/18 20:00 02/03/18 00:00 Temperature 97.8 F 98.1 F 98.2 F Pulse Rate 75 90 71 Respiratory Rate 18 18 18 Blood Pressure 132/63 142/71 H 169/62 H Pulse Oximetry 91 L 96 90 L 02/03/18 04:00 02/03/18 08:00 02/03/18 12:00 Temperature 98.7 F 97.5 F L Pulse Rate 72 81 89 Respiratory Rate 16 16 Blood Pressure 142/62 H 155/82 H Pulse Oximetry 93 L 94 L Intake & Output 02/02/18 02/03/18 02/03/18 18:59 06:59 18:59 Intake Total 400 / 400 550 / 550 Output Total 1050 / 1050 Balance 400 / 400 -500 / -500 Weight 63.2 kg Intake: IV 400 / 400 550 / 550 KCl Inj 30 MEQ In D5W/Normal 500 / 500 Saline Inj 1,000 ML @ 84 mls/hr IV.CONT .Q12H5M [facility] Rx#: [id number] Zosyn 3.375 GM Premix 50 ML @ 100 / 100 50 / 50 100 mls/hr IV.SIG Q6H [facility] Rx#: [id number] KCl 10 mEq Premix Inj 10 meq In 300 / 300 100 ml @ 100 mls/hr IV.SIG Q1H [facility] Rx#:[id number] Output: Urine 550 / 550 Gastric Drainage 500 / 500 Right Nare Nasogastric Tube 500 / 500 Other: # Voids 2 Date of Last Bowel Movement 02/02/18 02/02/18 # Bowel Movements 1 - Constitutional mild distress - Routine HEENT Exam Head: Present: normocephalic - Routine Respiratory Exam Present: CTA bilaterally - Routine Abdominal Exam Present: soft, distended. Absent: tenderness, guarding, firm - Routine Skin Exam Present: dry, warm - Routine Neurological Exam Present: alert - Routine Psychiatric Exam Present: normal affect, cooperative <eGeta Aguillon - Last Filed: 02/03/18 15:52> Vital signs: Vital Signs 02/03/18 00:00 02/03/18 04:00 02/03/18 08:00 Temperature 98.2 F 98.7 F 97.5 F L Pulse Rate 71 72 81 Respiratory Rate 18 16 16 Blood Pressure 169/62 H 142/62 H 155/82 H Pulse Oximetry 90 L 93 L 94 L 02/03/18 12:00 02/03/18 16:00 Temperature 97.2 F L Pulse Rate 89 82 Respiratory Rate 20 Blood Pressure 192/81 H Pulse Oximetry 95 Intake & Output 02/03/18 02/03/18 02/04/18 06:59 18:59 06:59 Intake Total 550 / 550 515 / 515 Output Total 1050 / 1050 150 / 150 Balance -500 / -500 365 / 365 Weight 63.2 kg Intake: IV 550 / 550 515 / 515 KCl Inj 30 MEQ In D5W/Normal 500 / 500 515 / 515 Saline Inj 1,000 ML @ 84 mls/hr IV.CONT .Q12H5M [facility] Rx#: [id number] Zosyn 3.375 GM Premix 50 ML @ 50 / 50 100 mls/hr IV.SIG Q6H [facility] Rx#: [id number] Output: Urine 550 / 550 Gastric Drainage 500 / 500 150 / 150 Right Nare Nasogastric Tube 500 / 500 150 / 150 Other: # Voids 2 Date of Last Bowel Movement 02/02/18 <Tyson Francis - Last Filed: 02/03/18 20:38> Results - Labs CBC & Chem 7: 02/02/18 06:20 02/03/18 07:56 Laboratory Results - last 24 hr 02/03/18 07:56 Sodium 138 Potassium 3.1 L Chloride 102 Carbon Dioxide 26.7 Anion Gap 9 BUN 10 Creatinine 0.69 Estimated GFR 80 L Random Glucose 95 Calcium 8.7 Magnesium 1.9 - Imaging Impressions Abdomen X-Ray 02/03/18 05:00 CONCLUSION: Nonspecific small area of dilated small bowel the left lateral lower abdomen. <Geeta Aguillon - Last Filed: 02/03/18 15:52> - Labs CBC & Chem 7: 02/02/18 06:20 02/03/18 07:56 Laboratory Results - last 24 hr 02/03/18 07:56 Sodium 138 Potassium 3.1 L Chloride 102 Carbon Dioxide 26.7 Anion Gap 9 BUN 10 Creatinine 0.69 Estimated GFR 80 L Random Glucose 95 Calcium 8.7 Magnesium 1.9 - Imaging Impressions Abdomen X-Ray 02/03/18 05:00 CONCLUSION: Nonspecific small area of dilated small bowel the left lateral lower abdomen. <Tyson Francis - Last Filed: 02/03/18 20:38> Assessment and Plan (1) Partial small bowel obstruction Status: Acute Code(s): K56.600 - Partial intestinal obstruction, unspecified as to cause - Plan 02/03/2018 Partial bowel obstruction NG tube in place clamped at this time. Contrast instilled and patient pending to return to radiology for additional images. Exam needed for further evaluation of ongoing obstruction May require surgical intervention Plan -N.p.o. -Small bowel follow-through -Antiemetics as ordered -Pantoprazole -Possible surgical consult may be required -Supportive care -Further recommendations to follow based on patient status and findings This patient has been seen by myself and Dr. Francis and this note is written on his behalf - Attending Attestation Dr. Francis <Geeta Aguillon - Last Filed: 02/03/18 15:52> (1) Partial small bowel obstruction Status: Acute Code(s): K56.600 - Partial intestinal obstruction, unspecified as to cause - Plan Patient seen and examined Agree with above Continue with current supportive care Monitor labs The patient apparently has pulled out her NG tube she appears to be comfortable in bed the abdomen is very soft small bowel follow-through has not been completed and late images have been ordered by the radiologist Further recommendations she will depend on hospital course and the small bowel follow-through <Tyson Francis E - Last Filed: 02/03/18 20:38>
--- NOTE | 2018-02-03 16:13 | P.PN ---
Subjective Interval history: Nursing reports that the patient is down for her study. Patient returns, daughters at the bedside, patient herself says this is the worst day she has had since she has been admitted. She is actively gagging as I try to talk to her. She just had her contrast instilled a few hours ago and is pending to be returned to radiology for further imaging for her small bowel follow-through. Physical Exam Vital signs: Vital Signs 02/02/18 20:00 02/03/18 00:00 02/03/18 04:00 Temperature 98.1 F 98.2 F 98.7 F Pulse Rate 90 71 72 Respiratory Rate 18 18 16 Blood Pressure 142/71 H 169/62 H 142/62 H Pulse Oximetry 96 90 L 93 L 02/03/18 08:00 02/03/18 12:00 Temperature 97.5 F L Pulse Rate 81 89 Respiratory Rate 16 Blood Pressure 155/82 H Pulse Oximetry 94 L Intake & Output 02/02/18 02/03/18 02/03/18 18:59 06:59 18:59 Intake Total 400 / 400 550 / 550 515 / 515 Output Total 1050 / 1050 Balance 400 / 400 -500 / -500 515 / 515 Weight 63.2 kg Intake: IV 400 / 400 550 / 550 515 / 515 KCl Inj 30 MEQ In D5W/Normal 500 / 500 515 / 515 Saline Inj 1,000 ML @ 84 mls/hr IV.CONT .Q12H5M [facility] Rx#: [id number] Zosyn 3.375 GM Premix 50 ML @ 100 / 100 50 / 50 100 mls/hr IV.SIG Q6H [facility] Rx#: [id number] KCl 10 mEq Premix Inj 10 meq In 300 / 300 100 ml @ 100 mls/hr IV.SIG Q1H [facility] Rx#:[id number] Output: Urine 550 / 550 Gastric Drainage 500 / 500 Right Nare Nasogastric Tube 500 / 500 Other: # Voids 2 Date of Last Bowel Movement 02/02/18 02/02/18 # Bowel Movements 1 Narrative: Abdomen soft, nontender Actively dry heaving, otherwise outside of episodes she appears to be in no acute distress Unlabored breathing Awake and alert Results - Labs CBC & Chem 7: 02/02/18 06:20 02/03/18 07:56 Laboratory Results - last 24 hr 02/03/18 07:56 Sodium 138 Potassium 3.1 L Chloride 102 Carbon Dioxide 26.7 Anion Gap 9 BUN 10 Creatinine 0.69 Estimated GFR 80 L Random Glucose 95 Calcium 8.7 Magnesium 1.9 - Imaging Impressions Abdomen X-Ray 02/03/18 05:00 CONCLUSION: Nonspecific small area of dilated small bowel the left lateral lower abdomen. Assessment and Plan - Plan 87-year-old white female with a history of hypertension hyperlipidemia was initially seen in the ED on January 28 with diagnoses of possibly colitis and discharged on oral Cipro and Flagyl now re-presented with recurrent and intractable nausea vomiting abdominal pain with new onset of atrial fibrillation. Abdominal pain with intractable nausea and vomiting with possible findings of partial bowel obstruction on CT -No significant improvement; had been with NG tube to LIS until follow thru- series had started. GI is following -Continue IV fluid hydration for supportive care and n.p.o. -NG tube is being held off at this time so that the contrast can continue to pass through for the patient's pending small bowel imaging session in the next hour -I will discontinue Zosyn at this time as there is no convincing source of infection w/ lack of fever and leukocytosis New onset of atrial fibrillation Stable on oral Cardizem, not requiring IV drip at this time Hypertension urgency blood pressure improved on Cardizem. IV Vasotec as needed will be initiated. HYpokalemia -Likely secondary to GI losses, improving, continue with IV supplementation, -recheck in AM Hyperlipidemia, chronic hold home medication due to n.p.o. status. Hyponatremia due to hypovolemia from intractable nausea vomiting IV fluids and supportive care. DVT prophylaxisLovenox.
[2018-02-04] MEDS: Potassium Chloride Inj 30 MEQ in Dextrose 5%/NaCl 0.9% Inj 1,000 ML IV.CONT SCH ×2 (01:39→13:55)
--- NOTE | 2018-02-04 01:44 | ECG ---
Date Performed: 02/01/2018 Time Performed: 20:03:43 PTAGE: 87 years EKG: Sinus rhythm WITH OCCASIONAL SUPRAVENTRICULAR PREMATURE COMPLEXES VOLTAGE CRITERIA FOR LVH NONSPECIFIC T-WAVE ABN ORMALITY ABNORMAL ECG PREVIOUS TRACING : 02/01/2018 10.53 Compared to previous tracing, previously MAT DOCTOR: Robbin Cooper Interpretating Date/Time 02/04/2018 01:42:24
[2018-02-04] MEDS: Enoxaparin Inj 60 MG/0.6 ML Syringe SQ SCH (02:09)
[2018-02-04 07:07] LABS: Calcium 9.1 mg/dL (8.5-10.1); Carbon Dioxide 28.5 meq/L (21.0-32.0); Potassium 3.4 meq/L (3.5-5.1)
--- NOTE | 2018-02-04 08:19 | FL ---
EXAM DATE: 02/04/2018 12:00 AM EDT AGE/SEX: 87 years / Female INDICATIONS: Nausea, vomiting, abdomen pain. Evaluate for CLINICAL DATA: This is the patient's subsequent encounter. Patient reports that signs and symptoms h ave been present for 1 week and indicates a pain score of 0/10. MEDICAL/SURGICAL HISTORY: . Carcinoma, lung. Hypertension. adenocarcinoma. Skin CA, Bone CA. Co litis and diverticulitis. . Cholecystectomy. Hysterectomy. COMPARISON: [facility] – [place], CT ABDOMEN & PELVIS W/O CONTRAST, 02/01/2018. . FLUORO TIME: 0 IMAGE COUNT: 13 CONTRAST: FINDINGS: Preliminary film demonstrates several loops of slightly distended small bowel in the midabdomen. Ther e is an NG tube in place. Calcifications in the pelvis are likely phleboliths. The stomach is grossly unremarkable. Examination of the small bowel demonstrates diffusely distended jejunal loops extending to the proxim al ileum. At 8 hours contrast does not extend to the distal ileum nor the cecum.. No intraluminal franny ling defects are noted. CONCLUSION: 1. Findings are most consistent with high grade small bowel obstruction in the distal jejunum/proxim al ileum. Point of obstruction is likely in the mid lower abdomen. Electronically signed by: Jayden Mclaughlin MD 02/04/2018 8:18 AM EDT
[2018-02-04] MEDS: Pantoprazole Inj 40 MG Vial IV.PUSH SCH ×2 (08:54→20:30)
[2018-02-04] MEDS: Sodium Chloride 0.9% 2 ML Flush BID IV.FLUSH SCH ×2 (08:54→21:04)
[2018-02-04] MEDS: Senna/Docusate Sodium 8.6/50 MG Tablet PO SCH ×2 (08:54→21:05)
--- NOTE | 2018-02-04 11:24 | P.PN ---
Subjective Interval history: Nursing denies any deterioration since last night except for some nausea vomiting this morning. Daughter however is at the bedside and says that whenever the patient wakes up she has an episode of dry heaving or vomiting. The patient had pulled out her NG tube and also took off her telemetry leads. Still has not had a bowel movement or passed gas. Physical Exam Vital signs: Vital Signs 02/03/18 12:00 02/03/18 16:00 02/03/18 20:00 Temperature 97.2 F L 98.8 F Pulse Rate 89 82 93 H Respiratory Rate 20 20 Blood Pressure 192/81 H 184/81 H Pulse Oximetry 95 97 02/04/18 00:00 02/04/18 04:00 02/04/18 08:00 Temperature 98.5 F 98.0 F 97.3 F L Pulse Rate 75 95 H 84 Respiratory Rate 18 18 18 Blood Pressure 168/70 H 182/82 H 137/82 Pulse Oximetry 95 96 96 Intake & Output 02/03/18 02/04/18 02/04/18 18:59 06:59 18:59 Intake Total 515 / 515 1000 / 1000 Output Total 150 / 150 1000 / 1000 Balance 365 / 365 0 / 0 Weight 60.1 kg Intake: IV 515 / 515 1000 / 1000 KCl Inj 30 MEQ In D5W/Normal 515 / 515 1000 / 1000 Saline Inj 1,000 ML @ 84 mls/hr IV.CONT .Q12H5M [facility] Rx#: [id number] Output: Urine 400 / 400 Emesis 600 / 600 Gastric Drainage 150 / 150 Right Nare Nasogastric Tube 150 / 150 Other: # Voids 2 Narrative: No definitive bowel sounds heard, abdomen is soft, nondistended Lying in bed, sleeping comfortably, when awoken starts dry heaving having clear emesis Unlabored breathing Results - Labs CBC & Chem 7: 02/02/18 06:20 02/04/18 05:48 Laboratory Results - last 24 hr 02/04/18 05:48 Sodium 143 Potassium 3.4 L Chloride 107 Carbon Dioxide 28.5 Anion Gap 8 BUN 10 Creatinine 0.72 Estimated GFR 77 L Random Glucose 150 H Calcium 9.1 - Imaging Impressions Small Bowel X-Ray 02/03/18 00:00 CONCLUSION: 1. Findings are most consistent with high grade small bowel obstruction in the distal jejunum/proximal ileum. Point of obstruction is likely in the mid lower abdomen. Assessment and Plan - Plan 87-year-old white female with a history of hypertension hyperlipidemia was initially seen in the ED on January 28 with diagnoses of possibly colitis and discharged on oral Cipro and Flagyl now re-presented with recurrent and intractable nausea vomiting abdominal pain with new onset of atrial fibrillation. Abdominal pain with intractable nausea and vomiting with possible findings of partial bowel obstruction on CT -No significant improvement; had been with NG tube to LIS until follow thru- series had started. GI is following and now surgery is following as well -Continue IV fluid hydration for supportive care and n.p.o. -NG tube is being held off at this time so that the contrast can continue to pass through for the patient's pending small bowel imaging session in the next hour -I will discontinue Zosyn at this time as there is no convincing source of infection w/ lack of fever and leukocytosis New onset of atrial fibrillation Stable on oral Cardizem Hypertension urgency blood pressure improved on Cardizem. Likely worsened with emesis episodes. IV Vasotec as needed will be initiated. HYpokalemia -Likely secondary to GI losses, shows continued improvement, continue with IV supplementation, -recheck in AM Hyperlipidemia, chronic hold home medication due to n.p.o. status. Hyponatremia due to hypovolemia from intractable nausea vomiting IV fluids and supportive care. DVT prophylaxisLovenox.
--- NOTE | 2018-02-04 13:38 | P.PNGI ---
Subjective Interval history: Patient resting soundly with eyes closed, awakens easily Denies abdominal pain NG tube in place to low intermittent wall suction draining small amounts of dark brown fluid <Geeta Aguillon - Last Filed: 02/04/18 13:27> Physical Exam Vital signs: Vital Signs 02/03/18 16:00 02/03/18 20:00 02/04/18 00:00 Temperature 97.2 F L 98.8 F 98.5 F Pulse Rate 82 93 H 75 Respiratory Rate 20 20 18 Blood Pressure 192/81 H 184/81 H 168/70 H Pulse Oximetry 95 97 95 02/04/18 04:00 02/04/18 08:00 Temperature 98.0 F 97.3 F L Pulse Rate 95 H 84 Respiratory Rate 18 18 Blood Pressure 182/82 H 137/82 Pulse Oximetry 96 96 Intake & Output 02/03/18 02/04/18 02/04/18 18:59 06:59 18:59 Intake Total 515 / 515 1000 / 1000 Output Total 150 / 150 1000 / 1000 Balance 365 / 365 0 / 0 Weight 60.1 kg Intake: IV 515 / 515 1000 / 1000 KCl Inj 30 MEQ In D5W/Normal 515 / 515 1000 / 1000 Saline Inj 1,000 ML @ 84 mls/hr IV.CONT .Q12H5M [facility] Rx#: [id number] Output: Urine 400 / 400 Emesis 600 / 600 Gastric Drainage 150 / 150 Right Nare Nasogastric Tube 150 / 150 Other: # Voids 2 - Constitutional no acute distress - Routine HEENT Exam Head: Present: normocephalic - Routine Respiratory Exam Present: CTA bilaterally. Absent: accessory muscle use - Routine Abdominal Exam Present: soft. Absent: tenderness, guarding, firm Comments: Minimal distention with approximately 50-100 mL's drainage from NG Minimal/ distant bowel sounds - Routine Extremities Exam Present: pulses intact - Routine Skin Exam Present: dry, warm - Routine Neurological Exam Present: alert - Routine Psychiatric Exam Present: normal affect, cooperative <Geeta Aguillon - Last Filed: 02/04/18 13:27> Vital signs: Vital Signs 02/04/18 00:00 02/04/18 04:00 02/04/18 08:00 Temperature 98.5 F 98.0 F 97.3 F L Pulse Rate 75 95 H 84 Respiratory Rate 18 18 18 Blood Pressure 168/70 H 182/82 H 137/82 Pulse Oximetry 95 96 96 02/04/18 12:00 02/04/18 19:40 02/04/18 19:45 Temperature 97.6 F 97.6 F Pulse Rate 76 123 H 118 H Respiratory Rate 18 20 21 Blood Pressure 176/75 H 193/79 H 178/75 H Pulse Oximetry 96 94 L 94 L 02/04/18 20:00 02/04/18 20:03 02/04/18 20:15 Temperature 98.4 F Pulse Rate 81 86 Respiratory Rate 21 22 Blood Pressure 128/59 L 130/63 Pulse Oximetry 93 L 93 L 92 L 02/04/18 20:16 Temperature Pulse Rate 82 Respiratory Rate Blood Pressure Pulse Oximetry Intake & Output 02/04/18 02/04/18 02/05/18 06:59 18:59 06:59 Intake Total 1000 / 1000 1015 / 1015 1300 / 1300 Output Total 1000 / 1000 930 / 930 Balance 0 / 0 1015 / 1015 370 / 370 Weight 60.1 kg Intake: IV 1000 / 1000 1015 / 1015 KCl Inj 30 MEQ In D5W/Normal 1000 / 1000 1015 / 1015 Saline Inj 1,000 ML @ 84 mls/hr IV.CONT .Q12H5M [facility] Rx#: [id number] Anesthesia Amount 1300 / 1300 Output: Urine 400 / 400 Emesis 600 / 600 Estimated Blood Loss 5 / 5 Urine Amount (Catheter) 925 / 925 Indwelling Urethral Catheter 925 / 925 - Urinary Catheter Management Indwelling Urethral Catheter Cath placed during this visit: yes Reason for continuing: Hourly intake/output Insertion date: 02/04/18 Insertion time: 17:57 <Tyson Francis - Last Filed: 02/04/18 21:09> Results - Labs CBC & Chem 7: 02/02/18 06:20 02/04/18 05:48 Laboratory Results - last 24 hr 02/04/18 05:48 Sodium 143 Potassium 3.4 L Chloride 107 Carbon Dioxide 28.5 Anion Gap 8 BUN 10 Creatinine 0.72 Estimated GFR 77 L Random Glucose 150 H Calcium 9.1 - Imaging Impressions Small Bowel X-Ray 02/03/18 00:00 CONCLUSION: 1. Findings are most consistent with high grade small bowel obstruction in the distal jejunum/proximal ileum. Point of obstruction is likely in the mid lower abdomen. <Geeta Aguillon - Last Filed: 02/04/18 13:27> - Labs CBC & Chem 7: 02/02/18 06:20 02/04/18 05:48 Laboratory Results - last 24 hr 02/04/18 05:48 Sodium 143 Potassium 3.4 L Chloride 107 Carbon Dioxide 28.5 Anion Gap 8 BUN 10 Creatinine 0.72 Estimated GFR 77 L Random Glucose 150 H Calcium 9.1 - Imaging Impressions Small Bowel X-Ray 02/03/18 00:00 CONCLUSION: 1. Findings are most consistent with high grade small bowel obstruction in the distal jejunum/proximal ileum. Point of obstruction is likely in the mid lower abdomen. <Tyson Francis E - Last Filed: 02/04/18 21:09> Assessment and Plan (1) Partial small bowel obstruction Status: Acute Code(s): K56.600 - Partial intestinal obstruction, unspecified as to cause - Plan 02/04/2018 Bowel obstruction NG tube to low intermittent wall suction replaced as per general surgery, estimated 50 mL's dark brown fluid and drainage container. Small bowel x-ray revealed the following findings: Findings are most consistent with high grade small bowel obstruction in the distal jejunum/proximal ileum. Point of obstruction is likely in the mid lower abdomen. (02/02) hemoglobin 12.5 hematocrit 36.2 platelet count 188 Plan -N.p.o. -Antiemetics as ordered -PPI -General surgery consulted/awaiting recommendation -Supportive care -Further recommendations to follow based on patient status and findings This patient has been seen by myself and Dr. Francis and this note is written on his behalf - Attending Attestation Dr. Francis <Geeta Aguillon - Last Filed: 02/04/18 13:27> (1) Partial small bowel obstruction Status: Acute Code(s): K56.600 - Partial intestinal obstruction, unspecified as to cause - Plan Patient seen and examined Agree with above Continue with current supportive care Monitor labs Small bowel obstruction has been confirmed we will defer to general surgery Not much to add from a GI perspective at this point we will sign off <Tyson Francis E - Last Filed: 02/04/18 21:09>
--- NOTE | 2018-02-04 14:59 | P.DIET ---
Nutritional Evaluation Screening comments: NPO Alert. Pt has been npo x 3 days with SBO. She has ng-t to [facility]. Consult RD if needed for nutrition support.
[2018-02-04] MEDS ORDERED: Bupivacaine/Epinephrine Inj 0.25% 50 ML Vial ONE (15:34)
[2018-02-04] MEDS ORDERED: Chlorhexidine Gluconate 2% 1 Pack (2 Cloths) TOPICAL ONE (17:37)
[2018-02-04] MEDS ORDERED: Metoprolol Tartrate 25 MG Tablet PO ONE (17:37)
[2018-02-04] MEDS ORDERED: Succinylcholine Inj 100 MG/5 ML Syringe IV.PUSH ONE (17:44)
[2018-02-04] MEDS ORDERED: Esmolol Bolus Inj 100 MG/10 ML Vial IV.PUSH ONE (17:44)
[2018-02-04] MEDS ORDERED: Phenylephrine/NS 1000 MCG/10ML Syringe IV.PUSH ONE (17:44)
[2018-02-04] MEDS ORDERED: Glycopyrrolate Inj 1 MG/5 ML Syringe IV.PUSH ONE (17:44)
[2018-02-04] MEDS ORDERED: hydrALAZINE HCl Inj 20 MG/ML Vial IV.PUSH ONE (17:44)
[2018-02-04] MEDS ORDERED: Normosol-R pH 7.4 Inj 1,000 ML IV.CONT ONE (17:44)
[2018-02-04] MEDS ORDERED: Labetalol HCl Inj 100 MG/20 ML Vial IV.CONT ONE (17:44)
[2018-02-04] MEDS ORDERED: Lidocaine PF 1% Inj 5 ML Syringe OTHER ONE (17:44)
[2018-02-04] MEDS ORDERED: Neostigmine Inj 5 MG/5 ML Syringe IV.PUSH ONE (17:44)
[2018-02-04] MEDS ORDERED: Sodium Chlor 0.9% Inj 500 ML IV.SIG SCH (18:00)
--- NOTE | 2018-02-04 18:00 | P.OP ---
- Preoperative Diagnosis (1) Small bowel obstruction - Postoperative Diagnosis (1) Small bowel obstruction Date of procedure: 02/04/18 Procedure: dx lap, lap maddi Anesthesia: GETA Surgeon: Gilbert Garcia MD Estimated blood loss (mL): 5 Pathology: none sent Operation and Findings: adhesions, decompressed small bowel
[2018-02-04] MEDS ORDERED: ceFAZolin 2 GM Premix Inj 2 GM/50 ML PIGGYBACK IV.SIG ONE (18:12)
[2018-02-04] MEDS ORDERED: fentaNYL Citrate Inj 100 MCG/2 ML Ampul ONE (19:57)
--- NOTE | 2018-02-04 21:50 | MP ---
cc: Gilbert Garcia MD DATE OF OPERATION: 02/04/2018 PREOPERATIVE DIAGNOSIS: Small-bowel obstruction, high grade. POSTOPERATIVE DIAGNOSIS: Small-bowel obstruction, high grade. PROCEDURE PERFORMED: Diagnostic laparoscopy, laparoscopic lysis of adhesions. SURGEON: Gilbert Garcia MD [employer]: See OR sheet. ANESTHESIA: GETA. IV FLUIDS: See anesthesia sheet. ESTIMATED BLOOD LOSS: 5 mL. DRAINS: None. COMPLICATIONS: None. WOUND CLASSIFICATION: Clean. FINDINGS: Multiple intra-abdominal adhesions, dilated proximal small bowel distal obstruction due to adhesion and several adhesive bands. SPECIMENS: None. INDICATIONS: The patient is an 87-year-old female who presents with several surgical histories, presents with acute onset of abdominal pain, nausea, vomiting. She had an initial NG tube placed with over [address] scan findings and small-bowel follow-through showed failure of passage of contrast and a high-grade small-bowel obstruction. Decision was made for surgical intervention including laparoscopic lysis of adhesion and diagnostic laparoscopy. DETAILS OF PROCEDURE: The patient was taken to the operating suite, placed in supine position, prepped and draped in the usual sterile fashion after induction of general endotracheal anesthesia. Brief timeout done demonstrating correct patient, procedure, surgical site were all in agreement with this. Attention first directed to the left upper quadrant where local anesthetic was injected. A small stab incision was made with a 15 blade. The Visiport Optiview port, 5 mm, was done to enter the abdomen safely. Abdomen insufflated to 15 mm pneumoperitoneum. On cursory inspection, multiple intra-abdominal adhesions. Two other ports were placed in left mid quadrant and left lower quadrant, 5 mm ports, and one other port in the right lower quadrant. Several intra-abdominal adhesions to the anterior abdominal wall were lysed and taken down. The terminal ileum was identified. The small bowel was run proximally on the ileum in order to identify the transition point and transition to dilation. There is a loop of bowel that was somewhat intermittently adhered in the pelvis. This was meticulously dissected out. Small abrasion on serosa and Endo suture was placed to reapproximate this. No evidence of bile leaking or injury. There was also adhesion noted from the cecum going to the lateral pelvis inferiorly. There are multiple dilated loops proximal with constricting band was site of significant adhesion abdomen and site of obstruction. Harmonic scalpel was used to lyse adhesions along with scissors and Endo Len. Once this was mobilized, the bowel was freed. The small bowel was then run from again terminal ileum proximally with noting of viable bowel. No evidence of necrosis or ischemia was noted. Hemostasis was obtained in small pieces. No anticoagulant was placed as well. The abdomen was then desufflated and ports were removed. A 4-0 Monocryl was used to close subcuticular incisions. Local anesthetic injected. All lap and instrument counts were correct at the end of the procedure. Sterile dressings were placed. The patient tolerated the procedure well and was extubated and taken to the PACU. MD ADAMS Obrien/edward , 08:22 PM , 08:30 PM
--- NOTE | 2018-02-05 00:45 | MB ---
cc: Gilbert Garcia MD DATE: 02/04/2018 REASON FOR CONSULTATION: Small-bowel obstruction. TRAINING DEVELOPER: Lynsey Hull MD HISTORY OF PRESENT ILLNESS: The patient is an 87-year-old female with multiple medical issues who presented with acute onset of abdominal pain. She started associated abdominal pain with intractable nausea and vomiting. She came to the emergency department on 01/28/2018 with significant complaints. She had CT scan with concern for sigmoid colitis, for which she was placed on antibiotics, and went home. However, she did not improve and continued to have episodes of vomiting and abdominal pain. The pain started in the mid abdomen and radiated down left side. She describes the pain as a burning and comes and goes, initially was 8/10, currently is a 6/10. She states she has not had a bowel movement for over a week and a history also provided per her daughter. She states initial NG tube with 2 liters output. She had a CT scan showing bowel obstruction and an upper GI that was done last night also confirming this. NG tube has been pulled out by the patient accidentally and the patient is sitting vomiting on the side of the bed and complains of significant nausea. She has had several surgeries in the past including exploratory laparotomy. PAST MEDICAL HISTORY: Bone cancer, skin cancer, tremor, hyperlipidemia, hypertension. PAST SURGICAL HISTORY: History of hysterectomy, cholecystectomy, spinal fusion. SOCIAL HISTORY: Denies smoking, ETOH or IVDA. ALLERGIES: CODEINE, ATORVASTATIN, LORATADINE, MEPERIDINE MEDICATION: See EMR FAMILY HISTORY: Denies diabetes or hypertension. REVIEW OF SYSTEMS: GENERAL: Denies fevers, chills. HEENT: Denies eye pain, ear pain. NECK: Denies swelling or pain. LUNGS: Denies cough or wheeze. HEART: Denies palpitation or chest pain. ABDOMEN: Complains of nausea, vomiting, abdominal pain. GENITOURINARY: Denies dysuria or hematuria. ENDOCRINE: Denies polyuria or polydipsia. INTEGUMENT: Denies any new masses or lesions. PSYCHIATRIC: Denies any change in mood or sensorium. PHYSICAL EXAMINATION: GENERAL: The patient is in no acute distress. VITAL SIGNS: Temperature 97.6, pulse 76, respirations 18, blood pressure 176/75, saturation 96%. HEENT: Pupils equal, round, reactive, dry mucous membranes. NECK: Supple. Trachea midline. LUNGS: Clear. HEART: S1, S2 regular. ABDOMEN: Soft, mild distention. Positive tenderness to palpation. Healed surgical scar. EXTREMITIES: Warm and well perfused. NEUROLOGIC: Awake, alert and oriented, 5/5 motor in all extremities. PSYCHIATRIC: Appropriate mood, appropriate judgment. Difficulty hearing. LABORATORY AND DIAGNOSTIC DATA: WBC 10.8, hemoglobin 12.5, hematocrit 36.2, platelets 188. Sodium is 143, potassium 3.4, chloride 107, BUN is 10, creatinine 0.7, glucose 150. CT scan reviewed by myself showing the significance of high-grade bowel obstruction, decompressed distal small bowel. Small-bowel follow-through confirming this and no passage of contrast. ASSESSMENT: The patient is an 87-year-old female with multiple medical issues who presents with a high-grade small-bowel obstruction. Vomiting at bedside. Nasogastric tube fell out. Nonprogression of contrast. PLAN: After full workup, patient with above issues. At this point, I discussed with nursing staff that the patient needs an NG tube reinserted for decompression. The patient has also evidence of failed medical measures and conservative treatment of bowel obstruction. We will take the patient to the OR for diagnostic laparoscopy, laparoscopic lysis of adhesions, possible bowel resection. Discussed with the patient and daughter in detail. The patient is a DNR. Discussed resending DNR temporarily in order to conduct a surgical intervention. Discussed further with daughter the significant risk of going to surgery. Further discussed that if the bowel is obstructed due to adhesion or bands that she would indeed need surgery and would not resolve from this. Daughter states full understanding and agrees and states both the patient and the daughter would like to proceed with surgery with the accepted risks. MD ADAMS Obrien/edward/portia , 09:08 PM , 09:18 PM ELIEL
[2018-02-05] MEDS: Potassium Chloride Inj 30 MEQ in Dextrose 5%/NaCl 0.9% Inj 1,000 ML IV.CONT SCH ×3 (05:02→18:09)
[2018-02-05] MEDS: Sodium Chloride 0.9% 2 ML Flush BID IV.FLUSH SCH ×2 (08:21→21:38)
[2018-02-05] MEDS: Senna/Docusate Sodium 8.6/50 MG Tablet PO SCH ×2 (08:21→21:38)
[2018-02-05] MEDS: Pantoprazole Inj 40 MG Vial IV.PUSH SCH ×2 (08:22→21:38)
[2018-02-05 08:55] LABS: Anion Gap 6 meq/L (5-15); Blood Urea Nitrogen 10 mg/dL (7-18); Calcium 7.6 mg/dL (8.5-10.1); Carbon Dioxide 24.8 meq/L (21.0-32.0); Chloride 114 meq/L (98-107); Glomerular Filtration Rate Greater Than 89 mL/min (>89); Glucose,Random 110 mg/dL (74-106); Sodium 145 meq/L (136-145)
--- NOTE | 2018-02-05 11:14 | P.PN ---
Subjective Interval history: Nursing denies any deterioration since last night. Patient underwent diagnostic laparoscopic intervention yesterday for treatment of her likely complete small bowel obstruction (unable to tolerate po intake, no BM, no flatulence). NG tube in place. Patient has an much better spirits today and is very grateful to us in alleviating her symptoms. No vomiting overnight. Still has not had a bowel movement or passed gas. Physical Exam Vital signs: Vital Signs 02/04/18 12:00 02/04/18 19:40 02/04/18 19:45 Temperature 97.6 F 97.6 F Pulse Rate 76 123 H 118 H Respiratory Rate 18 20 21 Blood Pressure 176/75 H 193/79 H 178/75 H Pulse Oximetry 96 94 L 94 L 02/04/18 20:00 02/04/18 20:03 02/04/18 20:15 Temperature 98.4 F Pulse Rate 81 86 Respiratory Rate 21 22 Blood Pressure 128/59 L 130/63 Pulse Oximetry 93 L 93 L 92 L 02/04/18 20:16 02/05/18 00:00 02/05/18 04:00 Temperature 97.2 F L 98.6 F Pulse Rate 82 76 75 Respiratory Rate 16 16 Blood Pressure 142/66 H 104/51 L Pulse Oximetry 96 98 02/05/18 07:28 02/05/18 07:39 02/05/18 08:00 Temperature 98.9 F Pulse Rate 95 H 76 Respiratory Rate 18 18 Blood Pressure 142/66 H Pulse Oximetry 97 Intake & Output 02/04/18 02/05/18 02/05/18 18:59 06:59 18:59 Intake Total 1015 / 1015 2315 / 2315 Output Total 1330 / 1330 Balance 1015 / 1015 985 / 985 Weight 60.1 kg Intake: IV 1015 / 1015 1015 / 1015 KCl Inj 30 MEQ In D5W/Normal 1015 / 1015 1015 / 1015 Saline Inj 1,000 ML @ 84 mls/hr IV.CONT .Q12H5M [facility] Rx#: [id number] Anesthesia Amount 1300 / 1300 Output: Estimated Blood Loss 5 / 5 Urine Amount (Catheter) 1325 / 1325 Indwelling Urethral Catheter 1325 / 1325 Narrative: Positive bowel sounds, abdomen soft, nontender, nondistended, incisions look dry clean and intact NG tube in place, awake, alert NG tube is suctioning dark brown material - Urinary Catheter Management Indwelling Urethral Catheter Cath placed during this visit: yes, but has since been removed by the nurse Reason for continuing: Decision to DC catheter Insertion date: 02/04/18 Insertion time: 17:57 Removal date: 02/05/18 Removal time: 06:00 Results - Labs CBC & Chem 7: 02/05/18 10:27 02/05/18 07:58 Laboratory Results - last 24 hr 02/05/18 07:58 Sodium 145 Potassium 4.0 Chloride 114 H Carbon Dioxide 24.8 Anion Gap 6 BUN 10 Creatinine 0.59 Estimated GFR Greater than 89 Random Glucose 110 H Calcium 7.6 L D Assessment and Plan - Plan 87-year-old white female with a history of hypertension hyperlipidemia was initially seen in the ED on January 28 with diagnoses of possibly colitis and discharged on oral Cipro and Flagyl now re-presented with recurrent and intractable nausea vomiting abdominal pain with new onset of atrial fibrillation. Failed conservative medical management with NG tube decompression. Patient is now status post diagnostic laparoscopy Small bowel obstruction -Clinically feeling better status post diagnostic laparoscopy. NG tube set to low intermittent suction at this time. New onset of atrial fibrillation Stable on oral Cardizem, resume Lovenox tonight. Hypertension urgency blood pressure improved on Cardizem. Likely worsened with emesis episodes. IV Vasotec as needed will be initiated. HYpokalemia -Improving with IV fluids and was control of GI symptoms Hyperlipidemia, chronic hold home medication due to n.p.o. status. -Resume pt's toprol XL neha once being able to tolerate po Hyponatremia due to hypovolemia from intractable nausea vomiting Resolved DVT prophylaxisLovenox.
[2018-02-05 11:18] LABS: Baso % (Auto) 0.4 % (0.0-2.0); Eos # (Auto) 0.1 th/mm3 (0.0-0.4); Eos % (Auto) 0.6 % (0.0-4.0); Hematocrit 39.8 % (35.0-46.0); Hemoglobin 13.2 gm/dL (11.6-15.3); Lymph # (Auto) 2.1 th/mm3 (1.0-4.8); Lymph % (Auto) 17.7 % (9.0-44.0); Mean Corpuscular Hemoglobin 30.3 pg (27.0-34.0); Mean Corpuscular Volume 91.7 fL (80.0-100.0); Mean Platelet Volume 10.1 fL (7.0-11.0); Mono # (Auto) 0.9 th/mm3 (0.0-0.9); Mono % (Auto) 8.2 % (0.0-8.0); Neut # (Auto) 8.5 th/mm3 (1.8-7.7); Neut % (Auto) 73.1 % (16.0-70.0); Platelet Count 191 th/mm3 (150-450); Red Blood Count 4.34 mil/mm3 (4.00-5.30); Red Cell Distribution Width 14.4 % (11.6-17.2); White Blood Count 11.6 th/mm3 (4.0-11.0)
[2018-02-05] MEDS ORDERED: Metoprolol Inj 5 MG/5 ML Vial IV.PUSH SCH (12:00)
--- NOTE | 2018-02-05 15:45 | P.PNGS ---
Subjective Patient reports: no new complaints, feels better, pain is less Physical Exam Vital signs: Vital Signs 02/04/18 19:40 02/04/18 19:45 02/04/18 20:00 Temperature 97.6 F Pulse Rate 123 H 118 H 81 Respiratory Rate 20 21 21 Blood Pressure 193/79 H 178/75 H 128/59 L Pulse Oximetry 94 L 94 L 93 L 02/04/18 20:03 02/04/18 20:15 02/04/18 20:16 Temperature 98.4 F Pulse Rate 86 82 Respiratory Rate 22 Blood Pressure 130/63 Pulse Oximetry 93 L 92 L 02/05/18 00:00 02/05/18 04:00 02/05/18 07:28 Temperature 97.2 F L 98.6 F Pulse Rate 76 75 Respiratory Rate 16 16 18 Blood Pressure 142/66 H 104/51 L Pulse Oximetry 96 98 02/05/18 07:39 02/05/18 08:00 02/05/18 11:41 Temperature 98.9 F 97.9 F Pulse Rate 95 H 76 75 Respiratory Rate 18 18 Blood Pressure 142/66 H 146/67 H Pulse Oximetry 97 02/05/18 12:00 Temperature Pulse Rate 69 Respiratory Rate Blood Pressure Pulse Oximetry Intake & Output 02/04/18 02/05/18 02/05/18 18:59 06:59 18:59 Intake Total 1015 / 1015 2315 / 2315 Output Total 1330 / 1330 Balance 1015 / 1015 985 / 985 Weight 60.1 kg Intake: IV 1015 / 1015 1015 / 1015 KCl Inj 30 MEQ In D5W/Normal 1015 / 1015 1015 / 1015 Saline Inj 1,000 ML @ 84 mls/hr IV.CONT .Q12H5M [facility] Rx#: [id number] Anesthesia Amount 1300 / 1300 Output: Estimated Blood Loss 5 / 5 Urine Amount (Catheter) 1325 / 1325 Indwelling Urethral Catheter 1325 / 1325 - Routine Abdominal Exam Present: soft (incisional tenderness, soft) - Urinary Catheter Management Indwelling Urethral Catheter Cath placed during this visit: yes, but has since been removed by the nurse Reason for continuing: Decision to DC catheter Insertion date: 02/04/18 Insertion time: 17:57 Removal date: 02/05/18 Removal time: 06:00 Results - Labs 02/05/18 10:27 02/05/18 07:58 Laboratory Results - last 24 hr 02/05/18 02/05/18 07:58 10:27 WBC 11.6 H RBC 4.34 Hgb 13.2 Hct 39.8 MCV 91.7 MCH 30.3 MCHC 33.0 RDW 14.4 Plt Count 191 MPV 10.1 Neut % (Auto) 73.1 H Lymph % (Auto) 17.7 [place] % (Auto) 8.2 H Eos % (Auto) 0.6 Baso % (Auto) 0.4 Neut # (Auto) 8.5 H Lymph # (Auto) 2.1 [place] # (Auto) 0.9 Eos # (Auto) 0.1 Baso # (Auto) 0.0 WBC Differential . Differential Comment Auto diff final Sodium 145 Potassium 4.0 Chloride 114 H Carbon Dioxide 24.8 Anion Gap 6 BUN 10 Creatinine 0.59 Estimated GFR Greater than 89 Random Glucose 110 H Calcium 7.6 L D - Imaging Imaging: ITS Impressions Abdomen/Pelvis CT 02/01/18 11:06 CONCLUSION: 1. Moderate distention of the mid and proximal small bowel with air-fluid levels which is increased compared to the prior study. The distal small bowel is nondilated. This suggests a mid to distal partial small bowel obstruction. 2. The bladder remains somewhat distended. 3. Otherwise, no other significant changes are seen compared to the prior study. Chest X-Ray 02/01/18 11:09 CONCLUSION: 1. Senescent changes with minimal positive fluid balance. Small Bowel X-Ray 02/03/18 00:00 CONCLUSION: 1. Findings are most consistent with high grade small bowel obstruction in the distal jejunum/proximal ileum. Point of obstruction is likely in the mid lower abdomen. Abdomen X-Ray 02/03/18 05:00 CONCLUSION: Nonspecific small area of dilated small bowel the left lateral lower abdomen. Assessment and Plan - Plan s/p dx lap lap maddi doing well PLAN Clamp ng tube start sips of clears encourage oob ok for lovenox tonight
[2018-02-06] MEDS: Potassium Chloride Inj 30 MEQ in Dextrose 5%/NaCl 0.9% Inj 1,000 ML IV.CONT SCH ×4 (03:04→19:45)
[2018-02-06] MEDS: Enoxaparin Inj 60 MG/0.6 ML Syringe SQ SCH ×2 (03:04→16:28)
[2018-02-06] MEDS: Senna/Docusate Sodium 8.6/50 MG Tablet PO SCH ×2 (09:16→21:20)
[2018-02-06] MEDS: Pantoprazole Inj 40 MG Vial IV.PUSH SCH ×2 (09:16→21:20)
[2018-02-06] MEDS: Sodium Chloride 0.9% 2 ML Flush BID IV.FLUSH SCH ×2 (09:16→21:23)
[2018-02-06] MEDS: Primidone 50 MG Tablet PO SCH (11:30)
[2018-02-06] MEDS: Tolterodine Tartrate LA 4 MG Capsule PO SCH (11:30)
--- NOTE | 2018-02-06 13:32 | P.PN ---
Subjective Interval history: Nursing denies any deterioration since last night. Daughters at the bedside. Daughter reports that the patient is passing gas. Still no bowel movement. Patient says she has she feels much better. Was able to tolerate some liquid intake earlier this morning. Physical Exam Vital signs: Vital Signs 02/05/18 16:00 02/05/18 20:00 02/06/18 00:00 Temperature 97.8 F 98.9 F 98.0 F Pulse Rate 79 89 84 Respiratory Rate 16 16 16 Blood Pressure 168/74 H 160/74 H 160/69 H Pulse Oximetry 97 96 94 L 02/06/18 03:31 02/06/18 04:00 02/06/18 08:00 Temperature 99.0 F 97.7 F Pulse Rate 88 74 Respiratory Rate 8 L 16 16 Blood Pressure 184/78 H 152/79 H Pulse Oximetry 91 L 98 02/06/18 12:00 Temperature 98.7 F Pulse Rate 80 Respiratory Rate 16 Blood Pressure 178/79 H Pulse Oximetry 98 Intake & Output 02/05/18 02/06/18 02/06/18 18:59 06:59 18:59 Intake Total 1255 / 1255 1495 / 1495 Output Total 2200 / 2200 Balance 1255 / 1255 -705 / -705 Weight 61.7 kg Intake: IV 1015 / 1015 1015 / 1015 KCl Inj 30 MEQ In D5W/Normal 1015 / 1015 1015 / 1015 Saline Inj 1,000 ML @ 84 mls/hr IV.CONT .Q12H5M [facility] Rx#: [id number] Oral 240 / 240 480 / 480 Output: Urine 2200 / 2200 Other: # Voids 2 Date of Last Bowel Movement 02/02/18 02/02/18 Narrative: Clear lungs bilaterally, unlabored breathing Abdomen is overall nontender, soft, nondistended, positive bowel sounds No acute distress NG tube in place clamped - Urinary Catheter Management Indwelling Urethral Catheter Cath placed during this visit: yes, but has since been removed by the nurse Reason for continuing: Other continuation reason Insertion date: 02/04/18 Insertion time: 17:57 Removal date: 02/05/18 Removal time: 06:00 Results - Labs CBC & Chem 7: 02/05/18 10:27 02/05/18 07:58 Assessment and Plan - Plan 87-year-old white female with a history of hypertension hyperlipidemia was initially seen in the ED on January 28 with diagnoses of possibly colitis and discharged on oral Cipro and Flagyl now re-presented with recurrent and intractable nausea vomiting abdominal pain with new onset of atrial fibrillation. Failed conservative medical management with NG tube decompression. Patient is now status post dx lap, lap maddi Small bowel obstruction -Clinically feeling better status post diagnostic laparoscopy. NG tube clamped atrial fibrillation Continue Cardizem, Lovenox while inpatient, can consider Coumadin versus oral anticoagulation upon discharge Hypertension urgency Patient is able to tolerate p.o. intake, will restart patient's home blood pressure medications including amlodipine, benazepril, amilorideHCTZ, Toprol-XL Hyperlipidemia, chronic Home statin HYpokalemia -Resolved DVT prophylaxisLovenox.
--- NOTE | 2018-02-06 15:46 | P.PNGS ---
Subjective Patient reports: no new complaints, feels better, flatus Physical Exam Vital signs: Vital Signs 02/05/18 16:00 02/05/18 20:00 02/06/18 00:00 Temperature 97.8 F 98.9 F 98.0 F Pulse Rate 79 89 84 Respiratory Rate 16 16 16 Blood Pressure 168/74 H 160/74 H 160/69 H Pulse Oximetry 97 96 94 L 02/06/18 03:31 02/06/18 04:00 02/06/18 08:00 Temperature 99.0 F 97.7 F Pulse Rate 88 74 Respiratory Rate 8 L 16 16 Blood Pressure 184/78 H 152/79 H Pulse Oximetry 91 L 98 02/06/18 12:00 Temperature 98.7 F Pulse Rate 80 Respiratory Rate 16 Blood Pressure 178/79 H Pulse Oximetry 98 Intake & Output 02/05/18 02/06/18 02/06/18 18:59 06:59 18:59 Intake Total 1255 / 1255 1495 / 1495 Output Total 2200 / 2200 Balance 1255 / 1255 -705 / -705 Weight 61.7 kg Intake: IV 1015 / 1015 1015 / 1015 KCl Inj 30 MEQ In D5W/Normal 1015 / 1015 1015 / 1015 Saline Inj 1,000 ML @ 84 mls/hr IV.CONT .Q12H5M [facility] Rx#: [id number] Oral 240 / 240 480 / 480 Output: Urine 2200 / 2200 Other: # Voids 2 Date of Last Bowel Movement 02/02/18 02/02/18 - Routine Abdominal Exam Present: soft (incisional tenderness) - Urinary Catheter Management Indwelling Urethral Catheter Cath placed during this visit: yes, but has since been removed by the nurse Reason for continuing: Other continuation reason Insertion date: 02/04/18 Insertion time: 17:57 Removal date: 02/05/18 Removal time: 06:00 Results - Labs 02/05/18 10:27 02/05/18 07:58 - Imaging Imaging: ITS Impressions Abdomen/Pelvis CT 02/01/18 11:06 CONCLUSION: 1. Moderate distention of the mid and proximal small bowel with air-fluid levels which is increased compared to the prior study. The distal small bowel is nondilated. This suggests a mid to distal partial small bowel obstruction. 2. The bladder remains somewhat distended. 3. Otherwise, no other significant changes are seen compared to the prior study. Chest X-Ray 02/01/18 11:09 CONCLUSION: 1. Senescent changes with minimal positive fluid balance. Small Bowel X-Ray 02/03/18 00:00 CONCLUSION: 1. Findings are most consistent with high grade small bowel obstruction in the distal jejunum/proximal ileum. Point of obstruction is likely in the mid lower abdomen. Abdomen X-Ray 02/03/18 05:00 CONCLUSION: Nonspecific small area of dilated small bowel the left lateral lower abdomen. Assessment and Plan - Plan s/p dx lap lap maddi doing well PLAN ng fell out advance to full diet encourage oob encourage oob ok for lovenox
[2018-02-06] MEDS: Lisinopril 20 MG Tablet PO SCH (16:28)
[2018-02-06] MEDS: amLODIPine 10 MG Tablet PO SCH (16:28)
[2018-02-06] MEDS: HCTZ PO SCH (18:38)
[2018-02-06] MEDS: AMILORIDE PO SCH (18:38)
[2018-02-07 00:28] VITALS: RESP 16
[2018-02-07] MEDS: Potassium Chloride Inj 30 MEQ in Dextrose 5%/NaCl 0.9% Inj 1,000 ML IV.CONT SCH ×2 (02:45→16:42)
[2018-02-07] MEDS: Enoxaparin Inj 60 MG/0.6 ML Syringe SQ SCH ×2 (03:00→16:42)
[2018-02-07] MEDS: HCTZ PO SCH (08:32)
[2018-02-07] MEDS: AMILORIDE PO SCH (08:32)
[2018-02-07] MEDS: Tolterodine Tartrate LA 4 MG Capsule PO SCH (08:32)
[2018-02-07] MEDS: Lisinopril 20 MG Tablet PO SCH (08:32)
[2018-02-07] MEDS: amLODIPine 10 MG Tablet PO SCH (08:32)
[2018-02-07] MEDS: Pantoprazole Inj 40 MG Vial IV.PUSH SCH (08:33)
[2018-02-07] MEDS: Primidone 50 MG Tablet PO SCH (08:33)
[2018-02-07] MEDS: Senna/Docusate Sodium 8.6/50 MG Tablet PO SCH (08:33)
[2018-02-07] MEDS: Sodium Chloride 0.9% 2 ML Flush BID IV.FLUSH SCH (08:33)
[2018-02-07 08:44] VITALS: TEMP 97.9
--- NOTE | 2018-02-07 11:55 | P.DS ---
Date of admission: 02/01/18 13:49 Primary care physician: Cathryn Mccauley Brief History from admission: 87-year-old white female with a history of hyperlipidemia, hypertension, essential tremor, previous bone cancer per reports in the back to the emergency room with worsening abdominal pain with associated intractable nausea and vomiting. She was seen on 28 January in the emergency room for abdominal pain and had a CAT scan abdomen pelvis performed which showed thickening of the sigmoid colon with possible colitis and was sent home on prescription for Cipro and Flagyl. Despite taking the antibiotics, her symptoms is not improved and now developed intractable nausea and some episodes of bilious vomiting which she describes as green in color. She reported when the abdomen pain first started it was located in the mid upper abdomen area and radiated down to the left side. She describes the pain as a dull burning pain that comes and goes. She denies any changes in her bowel movements. She denies any constipation nor any diarrhea. She has not seen any blood in her stools or black tarry stools. She denies any chills or fever associate with the symptoms. She denies any chest pain nor any symptoms of palpitation or shortness of breath. She has not had any heart history in the past. In the emergency room, she was found to have new onset atrial fibrillation and responded to IV Cardizem. She currently lives with her daughter and ambulates with assistance of a cane. DS: Summary Hospital Course: Patient was admitted, started on IV fluids had NG tube inserted and arrange for lower intermittent suction. GI was consulted, clinically patient was suspicious for high-grade or complete small bowel obstruction, patient ultimately failed conservative management. Gen surg was consulted, performed lysis of adhesions. Patient ultimately was having bowel movements and tolerating p.o. intake. Patient has been maximal benefit from hospitalization is clinically stable for discharge. - Time Spent with Patient Total time spent providing and/or coordinating discharge services: Less than 30 minutes Exam Vital signs: Vital Signs 02/06/18 12:00 02/06/18 16:00 02/06/18 20:00 Temperature 98.7 F 97.8 F 97.8 F Pulse Rate 80 82 79 Respiratory Rate 16 16 18 Blood Pressure 178/79 H 166/68 H 152/70 H Pulse Oximetry 98 97 100 02/07/18 00:00 02/07/18 04:00 02/07/18 08:00 Temperature 98.7 F 98.0 F 97.9 F Pulse Rate 78 79 73 Respiratory Rate 16 16 16 Blood Pressure 142/77 H 125/67 129/58 L Pulse Oximetry 98 99 93 L Intake & Output 02/06/18 02/07/18 02/07/18 18:59 06:59 18:59 Intake Total 2215 / 2215 1143 / 1143 Output Total 1500 / 1500 2200 / 2200 Balance 715 / 715 -1057 / -1057 Weight 61.6 kg Intake: IV 1015 / 1015 903 / 903 KCl Inj 30 MEQ In D5W/Normal 1015 / 1015 903 / 903 Saline Inj 1,000 ML @ 84 mls/hr IV.CONT .Q12H5M [facility] Rx#: [id number] Oral 1200 / 1200 240 / 240 Output: Urine 1500 / 1500 2200 / 2200 Other: Date of Last Bowel Movement 02/02/18 02/06/18 02/06/18 # Bowel Movements 0 Narrative: Positive bowel sounds abdomen soft, nontender, nondistended Results Procedures completed during hospitalization: . Laparoscopic lysis of adhesions - Impressions ITS Impressions Abdomen/Pelvis CT 02/01/18 11:06 CONCLUSION: 1. Moderate distention of the mid and proximal small bowel with air-fluid levels which is increased compared to the prior study. The distal small bowel is nondilated. This suggests a mid to distal partial small bowel obstruction. 2. The bladder remains somewhat distended. 3. Otherwise, no other significant changes are seen compared to the prior study. Chest X-Ray 02/01/18 11:09 CONCLUSION: 1. Senescent changes with minimal positive fluid balance. Small Bowel X-Ray 02/03/18 00:00 CONCLUSION: 1. Findings are most consistent with high grade small bowel obstruction in the distal jejunum/proximal ileum. Point of obstruction is likely in the mid lower abdomen. Abdomen X-Ray 02/03/18 05:00 CONCLUSION: Nonspecific small area of dilated small bowel the left lateral lower abdomen. Discharge Plan - Discharge Disposition Patient Disposition: 06 Disch W/Home Health Service - Discharge Condition Condition: Stable - Discharge Order Discharge Orders: Discharge Order (Routine); Ordered 02/07/18 Ordered By: Brian Jacob - Physicians Team Attending Provider: Brian Jacob Other Providers: Kemar Arriola MD ; Tyson Francis MD ; Coy Guaman MD
--- NOTE | 2018-02-07 12:12 | P.DCO ---
- Diagnosis (1) Small bowel obstruction Status: Acute - Physical Therapy Order: Evaluate and treat - Occupational Therapy Order: Evaluate and treat - Home Health Nursing Order: Medical education, Nursing assessment with vital signs - Case Management Consult Yes - Certification I have seen patient Lynda Hubbard on 02/07/18. My clinical findings support the need for the requested home health care services because: Limited ability to care for self I certify that my clinical findings support that this patient is homebound because: Post-op weakness
[2018-02-07 14:15] VITALS: BP 130/61; PULSE 75; O2SAT 97
== END 2018-02-07 16:35 | disposition home health service (06) ==
LOC: NEPC 10:19 → NEDA 10:19 → N04 17:31
PROVIDERS: ADMIT Hospitalist; ATTEND Hospitalist